=== PATIENT | male | born 1930 ===

== ENCOUNTER 2019-01-02 09:26 | Inpatient (IN) | payer OTHER ==
[2019-01-02 09:29] VITALS: BMI 21.5
--- NOTE | 2019-01-02 09:36 | C.PDOC ---
History Of Present Illness Patient BIBA from home for evaluation of AMS. As per EMS, patient's daughter was speaking to him on the phone and patient seemed confused and not himself, so 911 was called. Family friend in ED states patient has "not been feeling well" for the past 3 days and has been confused. EMS reports some difficulty following commands and difficulty focusing. Time Seen by Provider: 01/02/19 09:33 Chief Complaint (Nursing): Altered Mental Status History Per: EMS, Other History/Exam Limitations: Clinical Condition Onset Of Symptoms: Cannot Confirm Onset Past Medical History Reviewed: Historical Data, Nursing Documentation, Vital Signs Vital Signs: Last Vital Signs Temp 98.5 F 01/02/19 09:29 Pulse 89 01/02/19 09:29 Resp 14 01/02/19 09:29 BP 112/70 01/02/19 09:29 Pulse Ox - Medical History PMH: Diabetes Other PMH: PPM Surgical History: Pacemaker Family History: States: Other Other Family History: noncontributory - Social History Hx Alcohol Use: No Hx Substance Use: No - Immunization History Hx Tetanus Toxoid Vaccination: No Hx Influenza Vaccination: No Review Of Systems Review Of Systems: ROS cannot be obtained secondary to pt's inabilty to answer questions. Physical Exam - Physical Exam Appears: Non-toxic, No Acute Distress Head: Atraumatic, Normacephalic Eye(s): bilateral: Normal Inspection (NO NYSTAGMUS), PERRL, EOMI Oral Mucosa: Moist Cardiovascular: Rhythm Irregular (irregularly irregular ), No Murmur Respiratory: Normal Breath Sounds, No Rales, No Rhonchi, No Wheezing Gastrointestinal/Abdominal: Normal Exam, Bowel Sounds, Soft, No Tenderness Neurological/Psych: No Oriented x3, Normal Speech, No Normal Cognition, Normal Cranial Nerves, No Cerebellar Signs, Normal Motor, Normal Sensation, Slow To Respond With Command, No Dysarthria, Other (difficulty following commands/focusing, (-) Babinski) ED Course And Treatment - Laboratory Results Result Diagrams: 01/07/19 07:42 01/07/19 07:42 ECG: Interpreted By Me, Viewed By Me (atrial fibrillation 81bpm, normal axis, no acute ST/T wave changes) ECG Interpretation: Abnormal O2 Sat by Pulse Oximetry: 96 (RA) Pulse Ox Interpretation: Normal - CT Scan/US CT HEAD Other Rad Studies (CT/US): Read By Radiologist, Radiology Report Reviewed CT/US Interpretation: Accession No. : [id number]. Patient Name / ID : TOMAS FLORES / [id number]. Exam Date : 01/02/2019 09:37:05 ( Approved ). Study Comment : Sex / Age : M / 88Y. Creator : Segun Daley. Dictator : Trung Taylor MD. Pharmacognosist : Coordinator Of Online Programs : Trung Taylor MD. Approver2 : Report Date : 01/02/2019 09:43:09. My Comment : . Date of service: 01/02/2019. PROCEDURE: CT HEAD WITHOUT CONTRAST. HISTORY: Code Stroke. COMPARISON: None available. TECHNIQUE: Axial computed tomography images were obtained through the head/brain without intravenous contrast. Radiation dose: Total exam DLP = 1219.2 mGy-cm. This CT exam was performed using one or more of the following dose reduction techniques: Automated exposure control, adjustment of the mA and/or kV according to patient size, and/or use of iterative reconstruction technique. FINDINGS: HEMORRHAGE: No intracranial hemorrhage. BRAIN: Motion artifacts degrade the quality this examination particularly at the inferior cerebral levels. There is an area of cytotoxic edema affecting the left parietal occipital distribution with mass effect effacing local sulci compatible with acute or subacute brain infarction. A chronic lacune is identified at the right cerebellar base with prominent right cerebellar fissure favored over additional chronic lacune at the posterior right cerebellum mid level. Additional chronic lacune is seen at the right frontal lobe deep white matter. Expansion of the ventricular sulcal and cisternal spaces appreciated with ventricular volume concordant with sulcal volume compatible with diffuse cerebral atrophy. Trace periventricular white matter lucency indicates chronic microangiopathy. Both of these findings are age- appropriate for this patient. VENTRICLES: Unremarkable. No hydrocephalus. CALVARIUM: Unremarkable. PARANASAL SINUSES: Unremarkable as visualized. No significant inflammatory changes. MASTOID AIR CELLS: Unremarkable as visualized. No inflammatory changes. OTHER FINDINGS: None. IMPRESSION: Findings compatible with acute or subacute infarction at the left parietal occipital distribution with limited local mass effect. No midline shift. Motion artifacts degrade the quality this examination particularly at the inferior portion of the cerebrum. No gross intracranial hemorrhage appreciable. Clinical correlation follow-up CT are advised. Age-appropriate age related neuro degenerative change are identified with chronic lacune at the right cerebellar base and right frontal lobe as discussed above. Findings discussed with Dr. Campbell with written down and read back verification 01/02/2019 9:51 a.m.. CTA HEAD/NECK Other Rad Studies (CT/US): Read By Radiologist, Radiology Report Reviewed CT/US Interpretation: Accession No. : [id number]. Patient Name / ID : TOMAS FLORES / [id number]. Exam Date : 01/02/2019 09:46:15 ( Approved ). Study Com ment : Sex / Age : M / 88Y. Creator : Amanda Angulo. Dictator : Mari Caldwell MD. Pharmacognosist : Coordinator Of Online Programs : Mari Caldwell MD. Approver2 : Report Date : 01/02/2019 10:01:34. My Comment : . Date of service: 01/02/2019. PROCEDURE: CTA of the neck and head with contrast. HISTORY: code stroke confusion, atrial fibrillation. COMPARISON: No prior similar study available for comparison. The patient has CT of the head without contrast on 01/02/2019 at 9:40 a.m. TECHNIQUE: CTA of the neck and head were obtained after IV contrast administration. One hundred mL of Visipaque 320 was injected intravenously. Total exam DLP: 995.24. FINDINGS: The study is markedly limited and essentially is nondiagnostic due to poor contrast bolus and very limited opacification of the intracranial and neck arteries. Dilated thoracic aorta noted. Diffuse atherosclerotic calcification more prominent at the distal portion of the internal carotid arteries. IMPRESSION: Markedly limited and essentially nondiagnostic study. Progress Note: Spoke with patient's stepdaughter Luna, she lives in [place]. She called him this morning and states he was confused and having difficulty speaking. She is unsure of when symptoms started, but thinks they began this morning. Last time she spoke with patient was 3 days ago. Family friend at bedside states patient has "not been feeling well" for the past 3 days, he saw him this morning around 8am, after patient had spoken to Luna on the phone. Friend says states patient "seemed ok" but told him he had to go to hospital. Patient was last seen yesterday night by family friend, opened the door for him to come in, was ambulating normally and seemed at baseline. Symptom onset time unclear. 10:15am - Family friend left ED. No medication list available, stepdaughter Ira did not know meds either. Patient states [facility] [address] called called 00- no answer. Will try again. 10:25AM- Patient's medication list provided by pharmacy. Digoxin, Finasteride, Simvastatin, Hydroxyzine, Meformin, Mexilitine. PMD Dr. Martinez, Cardio Dr. Grier. 10:34am - Spoke with Dr. Martinez, confirms this is her patient but she is currently sick, requests hospitalist admission. 10:40- Discussed patient with Dr. Judd, recommends PO ASA, Plavix, IV NS at 100ml, permissive hypertension. No heparin/lovenox at this time. 11:02- Discussed patient with his retail director Dr. Grier, patient does have atrial fibrillation history. Currently on Digoxin (no longer on Mexiletine) and is supposed to be on Eliquis 2.5mg BID, however he has been on and off the medication due to falls/dizziness. Requests Dr. Cuellar see patient for cardiology consult. - Physician Consult Information Physician Contacted: Phil Carvalho Outcome Of Conversation: Discussed patient with hospitalist, agrees with admission for acute/subacute CVA with Dr. Judd for neurology. Dr. Grier retail director will be called. Critical Care Time - Critical Care Note Total Time (in mins): 40 Documented critical care: time excludes all time spent performing seperately billable procedures. NIHSS Stroke Scale - Date/Time Evaluation Performed Date Performed: 01/02/19 Time Performed: 09:29 When Was NIHSS Performed: Baseline - How Severe is the Stoke Level of Consciousness: 0=Alert LOC to Questions: 1=One correct LOC to commands: 1=Obeys one correctly Best Gaze: 0=Normal Visual: 0=No visual loss Facial: 0=Normal Motor Arm - Left: 0=No drift Motor Arm - Right: 0=No drift Motor Leg - Left: 0=No drift Motor Leg - Right: 0=No drift Limb Ataxia: 0=Absent Sensory: 0=Normal Best Language: 1=Mild to moderate aphasia Dysarthia: 0=Normal articulation Extinction & Inattention (Neglect): 0=Normal, no object Score: 3 rTPA Inclusion/Exclusion - Refusal of Treatment Patient Refused Treatment: No - Inclusion Criteria for Altepase Patient is 18 years or Older: Yes Clinical DX Ischemic Stroke Cause Neurological Deficit: Yes Time of Onset Established Less Than 270 Mins Before TX Begin: No Risk/Benefit Discussed With Patient/Family Member Present: No Disposition - Disposition Disposition: HOSPITALIZED Disposition Time: 10:50 Condition: STABLE - Clinical Impression Clinical Impression: CVA (cerebral vascular accident) Decision To Admit - Pt Status Changed To: Hospital Disposition Of: Inpatient - Admit Certification Admit to Inpatient:: After my assessment, the patient will require hospitaliza tion for at least two midnights. This is because of the severity of symptoms shown, intensity of services needed, and/or the medical risk in this patient being treated as an outpatient. - InPatient: Physician Admission Certification:: see notes - . Bed Request Type: Telemetry Admitting Physician: Phil Carvalho Patient Diagnosis: CVA (cerebral vascular accident)
[2019-01-02] MEDS ORDERED: Iodixanol 320 MG/ML 100 ML BOTTLE IV ONE (09:42)
[2019-01-02 09:43] LABS: BASO # 0.1 K/uL (0.0-0.2); BASO % 1.2 % (0.0-2.0); EOS # 0.2 K/uL (0.0-0.7); EOS % 1.7 % (0.0-4.0); HEMOGLOBIN 15.9 g/dL (12.0-18.0); LYMPH % 33.2 % (20.0-40.0); MEAN CELL VOLUME 91.3 fL (80.0-94.0); MEAN CORPUSCULAR HEMOGLOBIN 29.9 pg (27.0-31.0); MEAN CORPUSCULAR HGB CONC 32.8 g/dL (33.0-37.0); MEAN PLATELET VOLUME 10.8 fL (7.2-11.7); MONO # 0.9 K/uL (0.0-0.8); MONO % 9.8 % (0.0-10.0); NEUT # 4.9 K/uL (1.8-7.0); NEUT % 54.1 % (50.0-75.0); NRBC % 0.1 % (0.0-2.0); RBC 5.29 Mil/uL (4.40-5.90); RED CELL DISTRIBUTION WIDTH 13.5 % (11.5-14.5)
[2019-01-02 09:52] LABS: INR 1.2; PROTHROMBIN TIME 12.7 SECONDS (9.7-12.2)
[2019-01-02 09:57] LABS: ALB/GLOB RATIO 1.3 (1.0-2.1); ALT/SGPT 16 U/L (21-72); AST/SGOT 24 U/L (17-59); BLOOD UREA NITROGEN 18 mg/dL (9-20); CALCIUM 9.5 mg/dl (8.6-10.4); GFR NON-AFRICAN AMERICAN > 60; HDL CHOLESTEROL 51 mg/dL (30-70)
--- NOTE | 2019-01-02 10:07 | CT ---
Date of service: 01/02/2019 PROCEDURE: CT HEAD WITHOUT CONTRAST. HISTORY: Code Stroke COMPARISON: None available. TECHNIQUE: Axial computed tomography images were obtained through the head/brain without intravenous contrast. Radiation dose: Total exam DLP = 1219.2 mGy-cm. This CT exam was performed using one or more of the following dose reduction techniques: Automated exposure control, adjustment of the mA and/or kV according to patient size, and/or use of iterative reconstruction technique. FINDINGS: HEMORRHAGE: No intracranial hemorrhage. BRAIN: Motion artifacts degrade the quality this examination particularly at the inferior cerebral levels. There is an area of cytotoxic edema affecting the left parietal occipital distribution with mass effect effacing local sulci compatible with acute or subacute brain infarction. A chronic lacune is identified at the right cerebellar base with prominent right cerebellar fissure favored over additional chronic lacune at the posterior right cerebellum mid level. Additional chronic lacune is seen at the right frontal lobe deep white matter. Expansion of the ventricular sulcal and cisternal spaces appreciated with ventricular volume concordant with sulcal volume compatible with diffuse cerebral atrophy. Trace periventricular white matter lucency indicates chronic microangiopathy. Both of these findings are age-appropriate for this patient. VENTRICLES: Unremarkable. No hydrocephalus. CALVARIUM: Unremarkable. PARANASAL SINUSES: Unremarkable as visualized. No significant inflammatory changes. MASTOID AIR CELLS: Unremarkable as visualized. No inflammatory changes. OTHER FINDINGS: None. IMPRESSION: Findings compatible with acute or subacute infarction at the left parietal occipital distribution with limited local mass effect. No midline shift. Motion artifacts degrade the quality this examination particularly at the inferior portion of the cerebrum. No gross intracranial hemorrhage appreciable. Clinical correlation follow-up CT are advised. Age-appropriate age related neuro degenerative change are identified with chronic lacune at the right cerebellar base and right frontal lobe as discussed above. Findings discussed with Dr. Campbell with written down and read back verification 01/02/2019 9:51 a.m..
[2019-01-02 10:09] LABS: LDL CHOLESTEROL 116 mg/dL (0-129)
--- NOTE | 2019-01-02 10:31 | CT ---
Date of service: 01/02/2019 PROCEDURE: CTA of the neck and head with contrast HISTORY: code stroke confusion, atrial fibrillation COMPARISON: No prior similar study available for comparison. The patient has CT of the head without contrast on 01/02/2019 at 9:40 a.m. TECHNIQUE: CTA of the neck and head were obtained after IV contrast administration. One hundred mL of Visipaque 320 was injected intravenously. Total exam DLP: 995.24 FINDINGS: The study is markedly limited and essentially is nondiagnostic due to poor contrast bolus and very limited opacification of the intracranial and neck arteries. Dilated thoracic aorta noted. Diffuse atherosclerotic calcification more prominent at the distal portion of the internal carotid arteries. IMPRESSION: Markedly limited and essentially nondiagnostic study.
[2019-01-02] MEDS ORDERED: Sodium Chloride 0.9% 1,000 ML IV ONE (10:44)
[2019-01-02 11:28] LABS: URINE BILIRUBIN NEGATIVE (NEGATIVE); URINE BLOOD NEGATIVE (NEGATIVE); URINE CLARITY Clear (Clear); URINE COLOR Yellow (YELLOW); URINE GLUCOSE (UA) 1+ mg/dL (Normal); URINE LEUKOCYTE ESTERASE NEG Leu/uL (Negative); URINE PROTEIN NEGATIVE (NEGATIVE); URINE UROBILINOGEN NORMAL mg/dL (0.2-1.0)
--- NOTE | 2019-01-02 11:42 | CP.PCM.HP ---
History of Present Illness - History of Present Illness History of Present Illness: Trae Brewster PGY1 H&P for Dr. Carvalho Patient is a 88yo Male with PMH DM2 and A.fib with pacemaker, brought in by ambulance to ED for altered mental status. Patient complains of throat pain and headache at this time. Most history is obtained from friend at bedside and daughter in law Luna over the phone. As per Luna, patient complained of headache and generally not feeling well for the past 3 days. She requested the friend to go visit him last night. At that time, patient appeared "normal" to friend, who did not notice any difficulty talking, walking, or using limbs. He says patient at baseline has memory issues, sometimes confusing stories or repeating things. This morning, friend returned to visit patient around 8am, at which time he was slightly confused and with some unintelligible speech, complaining of headache and throat pain. Patient was still able to walk at this time, and friend did not notice facial droop. Patient and friend both deny any falls or trauma. Patient currently denies any trouble swallowing, blurry vision, numbness, tingling, or dizziness. SxH: pacemaker, unknown year FamH: denies SocH: denies tobacco, alcohol, or recreational drug use Allergies: not attainable at this time Meds: simivistatin 20mg PO daily, Metformin 500mg PO daily, Atarax 25mg PO daily, finasteride 5mg PO daily, Digoxin 125mcg PO daily PMD: Michelle ROS: positive: headache, throat pain. negative: chest pain, shortness of breath, abdominal pain, nausea, vomiting, diarrhea, dysuria, urinary incontinence, numbness, tingling, blurry vision, rashes. Present on Admission - Present on Admission Any Indicators Present on Admission: No Review of Systems - Review of Systems Review of Systems: as per HPI Past Patient History - Infectious Disease Hx of Infectious Diseases: None - Past Social History Smoking Status: Unknown If Ever Smoked - CARDIAC Hx Pacemaker: Yes - PSYCHIATRIC Hx Substance Use: No - SURGICAL HISTORY Hx Surgeries: (unknown) - ANESTHESIA Hx Anesthesia: No Meds Allergies/Adverse Reactions: Allergies Allergy/AdvReac Type Severity Reaction Status Date / Time Unobtainable Allergy Verified 01/02/19 09:28 Physical Exam - Constitutional Appears: Well, No Acute Distress - Head Exam Head Exam: ATRAUMATIC - Eye Exam Eye Exam: EOMI, Normal appearance, PERRL Pupil Exam: NORMAL ACCOMODATION - ENT Exam ENT Exam: Mucous Membranes Moist - Neck Exam Neck exam: Negative for: Lymphadenopathy, Tenderness, Thyromegaly - Respiratory Exam Respiratory Exam: Clear to Auscultation Bilateral, NORMAL BREATHING PATTERN. absent: Rales, Rhonchi, Wheezes - Cardiovascular Exam Cardiovascular Exam: Irregular Rhythm, +S1, +S2. absent: Gallop, JVD, Rubs - GI/Abdominal Exam GI & Abdominal Exam: Normal Bowel Sounds, Soft. absent: Distended, Firm, Tenderness - Extremities Exam Extremities exam: Positive for: pedal pulses present. Negative for: calf tenderness, pedal edema, tenderness - Neurological Exam Neurological exam: CN II-XII Intact, Reflexes Normal Additional comments: AAOx1, to person. muscle strength 4/5 in b/l upper and lower extremities no sensory deficits unable to follow commands to assess dysdiadochokinesia - Psychiatric Exam Psychiatric exam: Normal Affect, Normal Mood - Skin Skin Exam: Dry, Normal Color, Warm Results - Vital Signs Recent Vital Signs: Last Vital Signs Temp 98.5 F 01/02/19 09:29 Pulse 86 01/02/19 10:17 Resp 16 01/02/19 10:17 BP 116/70 01/02/19 10:17 Pulse Ox 96 01/02/19 10:17 - Labs Result Diagrams: 01/02/19 09:37 01/02/19 09:37 Labs: Laboratory Results - last 24 hr 01/02/19 01/02/19 01/02/19 09:29 09:37 09:37 WBC 9.0 RBC 5.29 Hgb 15.9 Hct 48.3 MCV 91.3 MCH 29.9 MCHC 32.8 L RDW 13.5 Plt Count 368 MPV 10.8 Neut % (Auto) 54.1 Lymph % (Auto) 33.2 Payne % (Auto) 9.8 Eos % (Auto) 1.7 Baso % (Auto) 1.2 Neut # (Auto) 4.9 Lymph # (Auto) 3.0 Payne # (Auto) 0.9 H Eos # (Auto) 0.2 Baso # (Auto) 0.1 PT 12.7 H INR 1.2 APTT 28 Sodium Potassium Chloride Carbon Dioxide Anion Gap BUN Creatinine Est GFR ( Amer) Est GFR (Non-Af Amer) POC Glucose (mg/dL) 229 H Random Glucose Hemoglobin A1c Calcium Total Bilirubin AST ALT Alkaline Phosphatase Troponin I Total Protein Albumin Globulin Albumin/Globulin Ratio Triglycerides Cholesterol LDL Cholesterol Direct HDL Cholesterol Urine Color Urine Clarity Urine pH Ur Specific [place] Urine Protein Urine Glucose (UA) Urine Ketones Urine Blood Urine Nitrate Urine Bilirubin Urine Urobilinogen Ur Leukocyte Esterase Urine WBC (Auto) Urine RBC (Auto) Digoxin Blood Type Antibody Screen 01/02/19 01/02/19 01/02/19 09:37 09:37 09:40 WBC RBC Hgb Hct MCV MCH MCHC RDW Plt Count MPV Neut % (Auto) Lymph % (Auto) Payne % (Auto) Eos % (Auto) Baso % (Auto) Neut # (Auto) Lymph # (Auto) Payne # (Auto) Eos # (Auto) Baso # (Auto) PT INR APTT Sodium 133 Potassium 4.2 Chloride 97 L Carbon Dioxide 28 Anion Gap 12 BUN 18 Creatinine 1.1 Est GFR ( Amer) > 60 Est GFR (Non-Af Amer) > 60 POC Glucose (mg/dL) Random Glucose 207 H Hemoglobin A1c 9.0 H Calcium 9.5 Total Bilirubin 1.0 AST 24 ALT 16 L Alkaline Phosphatase 49 Troponin I < 0.0120 Total Protein 7.1 Albumin 4.0 Globulin 3.1 Albumin/Globulin Ratio 1.3 Triglycerides 185 H Cholesterol 169 LDL Cholesterol Direct 116 HDL Cholesterol 51 Urine Color Urine Clarity Urine pH Ur Specific [place] Urine Protein Urine Glucose (UA) Urine Ketones Urine Blood Urine Nitrate Urine Bilirubin Urine Urobilinogen Ur Leukocyte Esterase Urine WBC (Auto) Urine RBC (Auto) Digoxin Blood Type O POSITIVE Antibody Screen Negative 01/02/19 01/02/19 10:37 11:10 WBC RBC Hgb Hct MCV MCH MCHC RDW Plt Count MPV Neut % (Auto) Lymph % (Auto) Payne % (Auto) Eos % (Auto) Baso % (Auto) Neut # (Auto) Lymph # (Auto) Payne # (Auto) Eos # (Auto) Baso # (Auto) PT INR APTT Sodium Potassium Chloride Carbon Dioxide Anion Gap BUN Creatinine Est GFR ( Amer) Est GFR (Non-Af Amer) POC Glucose (mg/dL) Random Glucose Hemoglobin A1c Calcium Total Bilirubin AST ALT Alkaline Phosphatase Troponin I Total Protein Albumin Globulin Albumin/Globulin Ratio Triglycerides Cholesterol LDL Cholesterol Direct HDL Cholesterol Urine Color Yellow Urine Clarity Clear Urine pH 6.0 Ur Specific [place] 1.010 Urine Protein Negative Urine Glucose (UA) 1+ H Urine Ketones Trace Urine Blood Negative Urine Nitrate Negative Urine Bilirubin Negative Urine Urobilinogen Normal Ur Leukocyte Esterase Neg Urine WBC (Auto) < 1 Urine RBC (Auto) 2 Digoxin < 0.4 L Blood Type Antibody Screen Assessment & Plan - Assessment and Plan (Free Text) Assessment: 88 year old male with PMH A.fib with pacemaker, DM2 presenting with altered mental status and called code stroke in ED. 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 Patient admitted for further evaluation and treatment of CVA. Plan: CVA - pt with altered mental status - CT head w/o contrast: acute vs. subacute infacrtion at L parietal occipital distribution with limited local mass effect. no midline shift, no hemorrhage. age-appropriate degenerative changes. - CTA head/neck: non-diagnostic - given ASA 325mg in ED, as per Neuro - given Plavix 300mg in ED, as per Neuro - not tpa candidate at this time due to uncertain time on onset of symptoms - NIHSS score of 3 - passed bedside swallow test - lipid panel: TG elevated at 185 - f/u UCx to r/o infectious cause of altered mental status - I/Os - tele monitoring - Crestor 20mg PO HS - ASA 325mg PO daily - Plavix 75mg PO daily - Neuro consulted, Dr. Judd - recs appreciated - PT/OT - Speech/Language Eval A.fib with pacemaker - EKG: A.fib at 81 bpm - troponin negative - digoxin level 0.4 - continue digoxin 125mcg PO daily - f/u ECHO - Cardio consulted, Dr. Grier - f/u recs DM2 - low dose sliding scale - home metformin held due to IV contrast, resume in 24 hrs - hypoglycemic protocol - accuchecks ACHS PPX: GI: Pepcid 20mg PO BID DVT: SCDs CCD Patient seen and case reviewed with Dr. Carvalho
--- NOTE | 2019-01-02 11:49 | RAD ---
Date of service: 01/02/2019 HISTORY: Code Stroke COMPARISON: No prior. FINDINGS: LUNGS: No active pulmonary disease. PLEURA: No significant pleural effusion identified, no pneumothorax apparent. CARDIOVASCULAR: No atherosclerotic calcification present No radiographic findings to suggest acute or significant cardiovascular disease. Position/ configuration of pacemaker device: Satisfactory. OSSEOUS STRUCTURES: No significant abnormalities. VISUALIZED UPPER ABDOMEN: Normal. OTHER FINDINGS: None. IMPRESSION: No active disease.
[2019-01-02] MEDS ORDERED: Glucagon Recombinant 1 mg Inj IM PRN (13:36)
[2019-01-02] MEDS ORDERED: Dextrose 50% SYRINGE Inj (50 ml) IV PRN (13:36)
[2019-01-02] MEDS ORDERED: Digoxin 125 mcg (0.125 mg) Tab PO SCH (13:45)
--- NOTE | 2019-01-02 16:39 | CP.PCM.CON ---
History of Present Illness - History of Present Illness History of Present Illness: Neurology Consultation Note: Consult requested by Dr. Carvalho The patient is an 88-year-old man with a past medical history DM2 and A.fib with pacemaker, brought in by ambulance to ED for altered mental status. The last time he was seen at his baseline was [address] scan of the head showed a left parietal/occipital subacute ischemic stroke. CTA of the head/neck was not very diagnostic. Review of Systems - Review of Systems Systems not reviewed;Unavailable: Altered Mental Status Past Patient History - Infectious Disease Hx of Infectious Diseases: None - Past Social History Smoking Status: Unknown If Ever Smoked - CARDIAC Hx Pacemaker: Yes - PSYCHIATRIC Hx Substance Use: No - SURGICAL HISTORY Hx Surgeries: (unknown) - ANESTHESIA Hx Anesthesia: No Meds Allergies/Adverse Reactions: Allergies Allergy/AdvReac Type Severity Reaction Status Date / Time Unobtainable Allergy Verified 01/02/19 09:28 - Medications Medications: Current Medications Aspirin (Aspirin) 325 mg PO DAILY [facility] Clopidogrel Bisulfate (Plavix) 75 mg PO DAILY [facility] Dextrose (Dextrose 50% Inj) 0 ml IV STAT PRN; Protocol PRN Reason: Hypoglycemia Protocol Dextrose (Glutose 15) 0 gm PO ONCE PRN; Protocol PRN Reason: Hypoglycemia Protocol Digoxin (Digoxin) 0.125 mg PO DAILY [facility] Famotidine (Pepcid) 20 mg PO DAILY [facility] Finasteride (Proscar) 5 mg PO DAILY [facility] Glucagon (Glucagen Diagnostic Kit) 0 mg IM STAT PRN; Protocol PRN Reason: Hypoglycemia Protocol Hydroxyzine HCl (Atarax) 25 mg PO DAILY PRN PRN Reason: Allergy symptoms Sodium Chloride (Sodium Chloride 0.9%) 1,000 mls @ 100 mls/hr IV .Q10H ONE Stop: 01/02/19 20:43 Last Admin: 01/02/19 11:18 Dose: 100 mls/hr Dextrose (Dextrose 5% In Water 1000 Ml) 1,000 mls @ 0 mls/hr IV .Q0M PRN; Protocol PRN Reason: Hypoglycemia Protocol Insulin Human Regular (Novolin R) 0 unit SC ACHS [facility]; Protocol Rosuvastatin Calcium (Crestor) 20 mg PO HS [facility] Physical Exam - Constitutional Appears: Well - Head Exam Head Exam: ATRAUMATIC, NORMAL INSPECTION, NORMOCEPHALIC - Eye Exam Eye Exam: EOMI, Normal appearance, PERRL Pupil Exam: NORMAL ACCOMODATION, PERRL - ENT Exam ENT Exam: Mucous Membranes Moist, Normal Exam - Neck Exam Neck exam: Positive for: Normal Inspection - Respiratory Exam Respiratory Exam: Clear to Auscultation Bilateral, NORMAL BREATHING PATTERN - Cardiovascular Exam Cardiovascular Exam: Irregular Rhythm, +S1, +S2 - GI/Abdominal Exam GI & Abdominal Exam: Normal Bowel Sounds, Soft. absent: Tenderness - Extremities Exam Extremities exam: Positive for: normal inspection - Back Exam Back exam: NORMAL INSPECTION - Neurological Exam Neurological exam: Altered, CN II-XII Intact, Normal Gait, Oriented x3, Reflexes Normal Additional comments: Partial receptive and productive aphasia. - Psychiatric Exam Psychiatric exam: Normal Affect, Normal Mood - Skin Skin Exam: Dry, Intact, Normal Color, Warm Results - Vital Signs Recent Vital Signs: Last Vital Signs Temp 98.1 F 01/02/19 12:10 Pulse 82 01/02/19 12:10 Resp 18 01/02/19 12:10 BP 121/73 01/02/19 12:10 Pulse Ox 98 01/02/19 12:10 - Labs Result Diagrams: 01/02/19 09:37 01/02/19 09:37 Labs: Laboratory Results - last 24 hr 01/02/19 01/02/19 01/02/19 09:29 09:37 09:37 WBC 9.0 RBC 5.29 Hgb 15.9 Hct 48.3 MCV 91.3 MCH 29.9 MCHC 32.8 L RDW 13.5 Plt Count 368 MPV 10.8 Neut % (Auto) 54.1 Lymph % (Auto) 33.2 Gilliam % (Auto) 9.8 Eos % (Auto) 1.7 Baso % (Auto) 1.2 Neut # (Auto) 4.9 Lymph # (Auto) 3.0 Gilliam # (Auto) 0.9 H Eos # (Auto) 0.2 Baso # (Auto) 0.1 PT 12.7 H INR 1.2 APTT 28 Sodium Potassium Chloride Carbon Dioxide Anion Gap BUN Creatinine Est GFR ( Amer) Est GFR (Non-Af Amer) POC Glucose (mg/dL) 229 H Random Glucose Hemoglobin A1c Calcium Total Bilirubin AST ALT Alkaline Phosphatase Troponin I Total Protein Albumin Globulin Albumin/Globulin Ratio Triglycerides Cholesterol LDL Cholesterol Direct HDL Cholesterol Urine Color Urine Clarity Urine pH Ur Specific [place] Urine Protein Urine Glucose (UA) Urine Ketones Urine Blood Urine Nitrate Urine Bilirubin Urine Urobilinogen Ur Leukocyte Esterase Urine WBC (Auto) Urine RBC (Auto) Digoxin Blood Type Antibody Screen 01/02/19 01/02/19 01/02/19 09:37 09:37 09:40 WBC RBC Hgb Hct MCV MCH MCHC RDW Plt Count MPV Neut % (Auto) Lymph % (Auto) Gilliam % (Auto) Eos % (Auto) Baso % (Auto) Neut # (Auto) Lymph # (Auto) Gilliam # (Auto) Eos # (Auto) Baso # (Auto) PT INR APTT Sodium 133 Potassium 4.2 Chloride 97 L Carbon Dioxide 28 Anion Gap 12 BUN 18 Creatinine 1.1 Est GFR ( Amer) > 60 Est GFR (Non-Af Amer) > 60 POC Glucose (mg/dL) Random Glucose 207 H Hemoglobin A1c 9.0 H Calcium 9.5 Total Bilirubin 1.0 AST 24 ALT 16 L Alkaline Phosphatase 49 Troponin I < 0.0120 Total Protein 7.1 Albumin 4.0 Globulin 3.1 Albumin/Globulin Ratio 1.3 Triglycerides 185 H Cholesterol 169 LDL Cholesterol Direct 116 HDL Cholesterol 51 Urine Color Urine Clarity Urine pH Ur Specific [place] Urine Protein Urine Glucose (UA) Urine Ketones Urine Blood Urine Nitrate Urine Bilirubin Urine Urobilinogen Ur Leukocyte Esterase Urine WBC (Auto) Urine RBC (Auto) Digoxin Blood Type O POSITIVE Antibody Screen Negative 01/02/19 01/02/19 10:37 11:10 WBC RBC Hgb Hct MCV MCH MCHC RDW Plt Count MPV Neut % (Auto) Lymph % (Auto) Gilliam % (Auto) Eos % (Auto) Baso % (Auto) Neut # (Auto) Lymph # (Auto) Gilliam # (Auto) Eos # (Auto) Baso # (Auto) PT INR APTT Sodium Potassium Chloride Carbon Dioxide Anion Gap BUN Creatinine Est GFR ( Amer) Est GFR (Non-Af Amer) POC Glucose (mg/dL) Random Glucose Hemoglobin A1c Calcium Total Bilirubin AST ALT Alkaline Phosphatase Troponin I Total Protein Albumin Globulin Albumin/Globulin Ratio Triglycerides Cholesterol LDL Cholesterol Direct HDL Cholesterol Urine Color Yellow Urine Clarity Clear Urine pH 6.0 Ur Specific [place] 1.010 Urine Protein Negative Urine Glucose (UA) 1+ H Urine Ketones Trace Urine Blood Negative Urine Nitrate Negative Urine Bilirubin Negative Urine Urobilinogen Normal Ur Leukocyte Esterase Neg Urine WBC (Auto) < 1 Urine RBC (Auto) 2 Digoxin < 0.4 L Blood Type Antibody Screen Assessment & Plan (1) Ischemic stroke Assessment and Plan: Appears to be cardio-embolic in appearance. Will consider starting anticoagulation after repeat CT head tomorrow to rule out any hemorrhagic conversion. I recommend the followin. Telemetry 2. MRI brain without contrast, if possible (pacemaker) 3. Echocardiogram 4. Carotid doppler ultrasound 5. Check HbA1c, lipid panel, B12, folate, TSH, vitamin D level 6. Fluids with NS at 100 mL/hr 7. May control BP since the patient was last normal 3 days ago 8. PT/OT eval and treatment 9. Case management consult Thank you for this consultation. Status: Acute
[2019-01-02] MEDS: (Novolin R) Insulin Human Regular 100 units/ml vial SC SCH ×2 (17:30→21:41)
--- NOTE | 2019-01-02 23:04 | CARD ---
APPROVED REPORT Date of service: 01/02/2019 EXAM: Two-dimensional and M-mode echocardiogram with Doppler and color Doppler. Other Information Quality : TDSRhythm : Atrial Fibrillation Surgery/Intervention Pacemaker: RISK FACTORS Diabetes 2D DIMENSIONS IVSd1.0 (0.7-1.1cm)LVDd4.4 (3.9-5.9cm) LVOT Diameter2.3 (1.8-2.4cm)PWd0.9 (0.7-1.1cm) LA Onvtxg49 (18-58mL)LVDs3.5 (2.5-4.0cm) FS (%) 19.8 %LVEF (%)60.0 (>50%) LVEF (Andino's)67.30 %IVC0.00 cm M-Mode DIMENSIONS Left Atrium (MM)3.14 (2.5-4.0cm)Aortic Root3.45 (2.2-3.7cm) Aortic Cusp Exc.1.13 (1.5-2.0cm) Aortic Valve AoV Peak Qylzllei802.8cm/sAoV VTI37.7cmAO Peak GR.18mmHg LVOT Peak Jzfexsjs82.6cm/sLVOT VTI14.95cmAO Mean GR.9mmHg IGOR (VMAX)1.51qb3NSR (VTI)1.60cm2 Mitral Valve MV E Rvkgnzvz247.9cm/sMV A Qtgxwers99.6cm/sE/A ratio3.9 TDI Lateral E' Peak V7.13cm/sMedial E' Peak V6.09cm/sE/Lateral E'14.6 E/Medial E'17.1 Tricuspid Valve TR Peak Rebgvjco440ai/sTR Peak Gr.75bgBgILVI20rfBa LEFT VENTRICLE The left ventricle is normal size. There is mild concentric left ventricular hypertrophy. The left ventricular function is normal. The left ventricular ejection fraction is within the normal range. There is normal LV segmental wall motion. The left ventricular diastolic function is normal. RIGHT VENTRICLE The right ventricle is normal size. ATRIA The left atrium size is normal. The right atrium size is normal. AORTIC VALVE The aortic valve is moderately sclerotic. There is moderate valvular aortic stenosis. MITRAL VALVE Mitral regurgitation is trace to mild. TRICUSPID VALVE There is trace to mild tricuspid regurgitation. <Conclusion> Technically limited and difficult study. Normal LV systolic function. Normal chamber size. Moderate . Mild MR. Trace to mild TR.
[2019-01-03 07:17] LABS: BASO # 0.1 K/uL (0.0-0.2); BASO % 1.2 % (0.0-2.0); EOS # 0.2 K/uL (0.0-0.7); EOS % 2.7 % (0.0-4.0); HEMOGLOBIN 14.2 g/dL (12.0-18.0); LYMPH # 3.9 K/uL (1.0-4.3); MEAN CELL VOLUME 90.7 fL (80.0-94.0); MEAN CORPUSCULAR HEMOGLOBIN 30.3 pg (27.0-31.0); MEAN CORPUSCULAR HGB CONC 33.4 g/dL (33.0-37.0); MEAN PLATELET VOLUME 10.6 fL (7.2-11.7); MONO # 0.9 K/uL (0.0-0.8); MONO % 9.8 % (0.0-10.0); NEUT # 3.7 K/uL (1.8-7.0); NEUT % 42.3 % (50.0-75.0); NRBC % 0.1 % (0.0-2.0); RBC 4.68 Mil/uL (4.40-5.90); RED CELL DISTRIBUTION WIDTH 13.2 % (11.5-14.5); WHITE BLOOD COUNT 8.9 K/uL (4.8-10.8)
[2019-01-03] MEDS: (Novolin R) Insulin Human Regular 100 units/ml vial SC SCH ×4 (07:30→21:33)
[2019-01-03 07:41] LABS: ALB/GLOB RATIO 1.4 (1.0-2.1); ALBUMIN 3.7 g/dL (3.5-5.0); ALT/SGPT 18 U/L (21-72); AST/SGOT 29 U/L (17-59); BLOOD UREA NITROGEN 22 mg/dL (9-20); CALCIUM 9.3 mg/dl (8.6-10.4); GFR NON-AFRICAN AMERICAN > 60
--- NOTE | 2019-01-03 11:35 | CP.PCM.PN ---
<Shannan Pires - Last Filed: 01/03/19 13:38> Subjective - Date & Time of Evaluation Date of Evaluation: 01/03/19 Time of Evaluation: 07:00 - Subjective Subjective: PGY2- Neuro Progress Note Patient seen and examined at bedside and in no acute distress. Patient is able to tell me his name, that he is in a hospital and that it is December. Patient has no complaints. Patient denies headache, dizziness, visual changes, chest pain, shortness of breath, abdominal pain, nausea, vomiting, constipation, or diarrhea. Objective - Vital Signs/Intake and Output Vital Signs (last 24 hours): Temp Pulse Resp BP Pulse Ox 97.9 F 63 20 108/64 96 01/03/19 07:15 01/03/19 07:15 01/03/19 07:15 01/03/19 07:15 01/03/19 07:15 Intake and Output: 01/03/19 01/03/19 06:59 18:59 Intake Total 300 Balance 300 - Medications Medications: Current Medications Aspirin (Aspirin) 325 mg PO DAILY [facility] Last Admin: 01/03/19 10:23 Dose: 325 mg Clopidogrel Bisulfate (Plavix) 75 mg PO DAILY [facility] Last Admin: 01/03/19 10:22 Dose: 75 mg Dextrose (Dextrose 50% Inj) 0 ml IV STAT PRN; Protocol PRN Reason: Hypoglycemia Protocol Dextrose (Glutose 15) 0 gm PO ONCE PRN; Protocol PRN Reason: Hypoglycemia Protocol Digoxin (Digoxin) 0.125 mg PO 1800 [facility] Famotidine (Pepcid) 20 mg PO DAILY [facility] Last Admin: 01/03/19 10:22 Dose: 20 mg Finasteride (Proscar) 5 mg PO DAILY [facility] Last Admin: 01/03/19 10:22 Dose: 5 mg Glucagon (Glucagen Diagnostic Kit) 0 mg IM STAT PRN; Protocol PRN Reason: Hypoglycemia Protocol Hydroxyzine HCl (Atarax) 25 mg PO DAILY PRN PRN Reason: Allergy symptoms Dextrose (Dextrose 5% In Water 1000 Ml) 1,000 mls @ 0 mls/hr IV .Q0M PRN; Protocol PRN Reason: Hypoglycemia Protocol Insulin Human Regular (Novolin R) 0 unit SC [facility]; Protocol Last Admin: 01/03/19 07:30 Dose: Not Given Rosuvastatin Calcium (Crestor) 20 mg PO [facility] Last Admin: 01/02/19 21:40 Dose: 20 mg - Labs Labs: 01/03/19 07:05 01/03/19 07:05 PT 12.7 SECONDS (9.7-12.2) H 01/02/19 09:37 INR 1.2 01/02/19 09:37 APTT 28 SECONDS (21-34) 01/02/19 09:37 - Constitutional Appears: Non-toxic, No Acute Distress - Head Exam Head Exam: ATRAUMATIC, NORMAL INSPECTION, NORMOCEPHALIC - Eye Exam Eye Exam: EOMI, Normal appearance - ENT Exam ENT Exam: Mucous Membranes Moist - Respiratory Exam Respiratory Exam: Clear to Ausculation Bilateral, NORMAL BREATHING PATTERN - Cardiovascular Exam Cardiovascular Exam: Irregular Rhythm, +S1, +S2 - GI/Abdominal Exam GI & Abdominal Exam: Soft, Normal Bowel Sounds - Extremities Exam Extremities Exam: Normal Inspection - Back Exam Back Exam: NORMAL INSPECTION - Neurological Exam Neurological Exam: Alert, Awake, Oriented x3 Neuro motor strength exam: Left Upper Extremity: 5, Right Upper Extremity: 5, Left Lower Extremity: 5, Right Lower Extremity: 5 Additional comments: Partial receptive and productive aphasia. - Psychiatric Exam Psychiatric exam: Normal Affect, Normal Mood - Skin Skin Exam: Intact, Normal Color, Warm Assessment and Plan - Assessment and Plan (Free Text) Assessment: (1) Ischemic stroke Assessment and Plan: Imaging: Head CT (01/02/19): findings compatible with acute or subacute infarction at the left parietal occipital distribution with limited local mass effect. No midline shift. No gross intracranial hemorrhage appreciable. age appropriate related neuro degenerative change are identified with chronic lacune at the right cerebellar base and right frontal lobe. Head and Neck CTA (01/02/19): markedly limited and essentially nondiagnostic study Head CT (01/03/19): there is an acute or subacute infarct in the left occipital lobe measuring 24 x 32mm. This is unchanged in appearance. Chronic microvascular changes are seen as well as moderate atrophy Echocardiogram (01/02/19): technically limited and difficult study. Normal LV systolic function. Normal chamber size. Moderate . Mild MR. Trace to mild TR. MRI brain without contrast, if possible (pacemaker) f/u Carotid doppler ultrasound hold anticoagulation, may start Eliquis tomorrow after repeat head CT to r/o any hemorrhagic conversion HbA1c: 9.0 lipid panel: Triglycerides: 185, Cholesterol 169, LDL 116, HDL 51 B12: 374, folate: 13.2 TSH: 4.13 vitamin D: 36.6 PT/OT eval and treatment Case management consult Discussed with Dr. Binta Pires, PGY2 <Rafat Judd - Last Filed: 01/07/19 15:53> Objective - Vital Signs/Intake and Output Vital Signs (last 24 hours): Temp Pulse Resp BP Pulse Ox 98.2 F 113 H 20 119/76 96 01/07/19 08:02 01/07/19 08:27 01/07/19 08:02 01/07/19 08:02 01/07/19 08:02 Intake and Output: 01/07/19 01/07/19 06:59 18:59 Intake Total 500 Output Total 300 Balance 200 - Labs Labs: 01/07/19 07:42 01/07/19 07:42 PT 12.7 SECONDS (9.7-12.2) H 01/02/19 09:37 INR 1.2 01/02/19 09:37 APTT 28 SECONDS (21-34) 01/02/19 09:37 Assessment and Plan (1) Ischemic stroke Status: Acute Attending/Attestation - Attestation I have personally seen and examined this patient.: Yes I have fully participated in the care of the patient.: Yes I have reviewed all pertinent clinical information, including history, physical exam and plan: Yes Notes (Text): I agree with the assessment and plan. Will continue holding Eliquis for now. If repeat CT head is stable, we can start it for secondary stroke prevention.
--- NOTE | 2019-01-03 13:00 | CT ---
Date of service: 01/03/2019 PROCEDURE: CT HEAD WITHOUT CONTRAST. HISTORY: r/o hemmorhagic conversion COMPARISON: 01/02/2019 CT TECHNIQUE: Axial computed tomography images were obtained through the head/brain without intravenous contrast. Radiation dose: Total exam DLP = 948.61 mGy-cm. This CT exam was performed using one or more of the following dose reduction techniques: Automated exposure control, adjustment of the mA and/or kV according to patient size, and/or use of iterative reconstruction technique. FINDINGS: HEMORRHAGE: No intracranial hemorrhage. BRAIN: There is an acute or subacute infarct in the left occipital lobe measuring 24 x 32 mm. This is unchanged in appearance. Chronic microvascular changes are seen as well as moderate atrophy VENTRICLES: Unremarkable. No hydrocephalus. CALVARIUM: Unremarkable. PARANASAL SINUSES: Unremarkable as visualized. No significant inflammatory changes. MASTOID AIR CELLS: Unremarkable as visualized. No inflammatory changes. OTHER FINDINGS: None. IMPRESSION: There is an acute or subacute infarct in the left occipital lobe measuring 24 x 32 mm. This is unchanged in appearance. Chronic microvascular changes are seen as well as moderate atrophy
--- NOTE | 2019-01-03 13:16 | CP.PCM.PN ---
<Trae Brewster - Last Filed: 01/03/19 14:19> Subjective - Date & Time of Evaluation Date of Evaluation: 01/03/19 Time of Evaluation: 13:10 - Subjective Subjective: Trae Brewster PGY1 Progress Note for Dr. Espinal Patient was examined at bedside this morning. He reports improvement in the headache and pain in his throat. Patient denies weakness. He reports never being told to take a blood thinner for his A.fib. As per his daughter Lisseth, pt got pacemaker in 2018. Objective - Vital Signs/Intake and Output Vital Signs (last 24 hours): Temp Pulse Resp BP Pulse Ox 97.9 F 63 20 108/64 96 01/03/19 07:15 01/03/19 07:15 01/03/19 07:15 01/03/19 07:15 01/03/19 07:15 Intake and Output: 01/03/19 01/03/19 06:59 18:59 Intake Total 300 Balance 300 - Medications Medications: Current Medications Dextrose (Dextrose 50% Inj) 0 ml IV STAT PRN; Protocol PRN Reason: Hypoglycemia Protocol Dextrose (Glutose 15) 0 gm PO ONCE PRN; Protocol PRN Reason: Hypoglycemia Protocol Digoxin (Digoxin) 0.125 mg PO 1800 [facility] Famotidine (Pepcid) 20 mg PO DAILY [facility] Last Admin: 01/03/19 10:22 Dose: 20 mg Finasteride (Proscar) 5 mg PO DAILY [facility] Last Admin: 01/03/19 10:22 Dose: 5 mg Glucagon (Glucagen Diagnostic Kit) 0 mg IM STAT PRN; Protocol PRN Reason: Hypoglycemia Protocol Hydroxyzine HCl (Atarax) 25 mg PO DAILY PRN PRN Reason: Allergy symptoms Dextrose (Dextrose 5% In Water 1000 Ml) 1,000 mls @ 0 mls/hr IV .Q0M PRN; Protocol PRN Reason: Hypoglycemia Protocol Insulin Human Regular (Novolin R) 0 unit SC ACHS [facility]; Protocol Last Admin: 01/03/19 07:30 Dose: Not Given Rosuvastatin Calcium (Crestor) 20 mg PO HS [facility] Last Admin: 01/02/19 21:40 Dose: 20 mg - Labs Labs: 01/03/19 07:05 01/03/19 07:05 PT 12.7 SECONDS (9.7-12.2) H 01/02/19 09:37 INR 1.2 01/02/19 09:37 APTT 28 SECONDS (21-34) 01/02/19 09:37 - Constitutional Appears: Well, No Acute Distress - Head Exam Head Exam: ATRAUMATIC, NORMOCEPHALIC - Eye Exam Eye Exam: EOMI, PERRL Pupil Exam: NORMAL ACCOMODATION - ENT Exam ENT Exam: Mucous Membranes Dry - Neck Exam Neck Exam: Normal Inspection - Respiratory Exam Respiratory Exam: Clear to Ausculation Bilateral, NORMAL BREATHING PATTERN. absent: Rales, Rhonchi, Wheezes - Cardiovascular Exam Cardiovascular Exam: Irregular Rhythm, +S1, +S2. absent: Gallop, Rubs, Murmur - GI/Abdominal Exam GI & Abdominal Exam: Soft, Normal Bowel Sounds. absent: Distended, Tenderness - Extremities Exam Extremities Exam: Normal Inspection. absent: Calf Tenderness, Pedal Edema - Neurological Exam Neurological Exam: Alert, Awake, CN II-XII Intact. absent: Motor Sensory Deficit Neuro motor strength exam: Left Upper Extremity: 4, Right Upper Extremity: 4, Left Lower Extremity: 4, Right Lower Extremity: 4 Additional comments: AAOx1, to person and place - Psychiatric Exam Psychiatric exam: Normal Affect, Normal Mood - Skin Skin Exam: Dry Assessment and Plan - Assessment and Plan (Free Text) Assessment: 88 year old male with PMH A.fib with pacemaker, DM2 presenting with altered mental status and called code stroke in ED. 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 Patient admitted for further evaluation and treatment of CVA. Plan: CVA - rpt CT head 01/03: acute or subacute infarct in L occcipital lobe measuring [id number]. Unchanged in appearance. Chronic microvascular changes with moderate atrophy. - CT head w/o contrast 01/02: acute vs. subacute infarction at L parietal occipital distribution with limited local mass effect. no midline shift, no hemorrhage. age-appropriate degenerative changes. - CTA head/neck: non-diagnostic - ECHO: normal LV systolic function, moderate , mild MR, trace TR - NIHSS score of 3 in ED, did not receive tPA due to unknown time of symptom onset - lipid panel: TG elevated at 185 - UCx: Gram + cocci, <10,000 CFU - tele monitoring - Crestor 20mg PO HS - hold anticoagulation at this time until repeat CT tomorrow for hemorrhagic conversion precaution - Neuro consulted, Dr. Judd - richard gonsales - f/u Carotid US - PT/OT - Speech/Language Eval - as per daughter, patient received MRI in 2018 however she cannot confirm make/company. consider MRI if more information available. A.fib with pacemaker - CHADSVASC score 5, will require anticoagulation - EKG: A.fib at 81 bpm - troponin negative - digoxin level 0.4 - digoxin 125mcg PO daily - ECHO: normal LV systolic funciton. normal chamber size. moderate , mild MR, trace TR - Cardio consulted, Dr. Cuellar - f/u recs DM2 - HbA1c 9.0 - low dose sliding scale - continue home Metformin - hypoglycemic protocol - accucheckbrent ACHS PPX: GI: Pepcid 20mg PO BID DVT: SCDs, hold other anticoagulation until CT tomorrow clear of hemorrhage CCD Patient seen and case reviewed with Dr. Espinal <Long Espinal - Last Filed: 01/03/19 16:39> Objective - Vital Signs/Intake and Output Vital Signs (last 24 hours): Temp Pulse Resp BP Pulse Ox 98.2 F 56 L 20 128/72 96 01/03/19 15:00 01/03/19 15:00 01/03/19 15:00 01/03/19 15:00 01/03/19 15:00 Intake and Output: 01/03/19 01/03/19 06:59 18:59 Intake Total 300 Balance 300 - Medications Medications: Current Medications Dextrose (Dextrose 50% Inj) 0 ml IV STAT PRN; Protocol PRN Reason: Hypoglycemia Protocol Dextrose (Glutose 15) 0 gm PO ONCE PRN; Protocol PRN Reason: Hypoglycemia Protocol Digoxin (Digoxin) 0.125 mg PO 1800 [facility] Famotidine (Pepcid) 20 mg PO DAILY [facility] Last Admin: 01/03/19 10:22 Dose: 20 mg Finasteride (Proscar) 5 mg PO DAILY [facility] Last Admin: 01/03/19 10:22 Dose: 5 mg Glucagon (Glucagen Diagnostic Kit) 0 mg IM STAT PRN; Protocol PRN Reason: Hypoglycemia Protocol Hydroxyzine HCl (Atarax) 25 mg PO DAILY PRN PRN Reason: Allergy symptoms Dextrose (Dextrose 5% In Water 1000 Ml) 1,000 mls @ 0 mls/hr IV .Q0M PRN; Protocol PRN Reason: Hypoglycemia Protocol Influenza Virus Vaccine (Flucelvax Quad [id number] Syr) 60 mcg IM .ONCE ONE Stop: 01/04/19 12:01 Insulin Human Regular (Novolin R) 0 unit SC [facility]; Protocol Last Admin: 01/03/19 11:30 Dose: Not Given Pneumococcal Polyvalent Vaccine (Pneumovax 23 Vaccine) 0.5 ml IM .ONCE ONE Stop: 01/04/19 12:01 Rosuvastatin Calcium (Crestor) 20 mg PO [facility] Last Admin: 01/02/19 21:40 Dose: 20 mg - Labs Labs: 01/03/19 07:05 01/03/19 07:05 PT 12.7 SECONDS (9.7-12.2) H 01/02/19 09:37 INR 1.2 01/02/19 09:37 APTT 28 SECONDS (21-34) 01/02/19 09:37 Attending/Attestation - Attestation I have personally seen and examined this patient.: Yes I have fully participated in the care of the patient.: Yes I have reviewed all pertinent clinical information, including history, physical exam and plan: Yes
[2019-01-03 13:22] LABS: FOLATE 13.2 ng/mL
[2019-01-03] MEDS ORDERED: Digoxin 125 mcg (0.125 mg) Tab PO SCH (18:00)
--- NOTE | 2019-01-03 20:14 | CARD ---
APPROVED REPORT Date of service: 01/02/2019 EKG Measurement Heart [id number] <Conclusion> Atrial fibrillation Nonspecific T wave abnormality Abnormal ECG
--- NOTE | 2019-01-03 20:50 | CP.PCM.CON ---
History of Present Illness - History of Present Illness History of Present Illness: Cardiac-Electrophysiology Consult Re: pacemaker function "No spikes despite heart rate in the forties" Chart imaging EKG echocardiogram and telemetry reviewed Seen interviewed and examined Mr. Mauro was admitted with altered mental status and was diagnosed to have a cerebral ischemic infarct he has a history of atrial fibrillation on intermittent anti-coagulation (apaxiban) and has a history of permanent pacemaker (unclear indication) and follow s up with Dr. Grier There is no history of syncope dizziness Exam No distress normal venous pressures Clear lungs 1/6 basal ejection murmur No edema labs: reviewed EKG showed atrial fibrillation with rates controlled Echo showed moderate aortic valve disease with preserved LV systolic function In absence of pacemaker settings its difficult to surmise pacemaker function He is seemingly not dependant on the device Tlemetry showed appropriate pacing at slower rates although the pacing spike is difficult to discern Suggest pacemaker interrogation (ordered) Place a magnet over the device and obtain an EKG Continue with anticoagulation per neurology Past Patient History - Infectious Disease Hx of Infectious Diseases: None - Past Social History Smoking Status: Unknown If Ever Smoked - CARDIAC Hx Pacemaker: Yes - PSYCHIATRIC Hx Substance Use: No - SURGICAL HISTORY Hx Surgeries: (unknown) - ANESTHESIA Hx Anesthesia: No Meds Allergies/Adverse Reactions: Allergies Allergy/AdvReac Type Severity Reaction Status Date / Time Unobtainable Allergy Verified 01/02/19 09:28 - Medications Medications: Current Medications Dextrose (Dextrose 50% Inj) 0 ml IV STAT PRN; Protocol PRN Reason: Hypoglycemia Protocol Dextrose (Glutose 15) 0 gm PO ONCE PRN; Protocol PRN Reason: Hypoglycemia Protocol Digoxin (Digoxin) 0.125 mg PO 1800 [facility] Famotidine (Pepcid) 20 mg PO DAILY [facility] Last Admin: 01/03/19 10:22 Dose: 20 mg Finasteride (Proscar) 5 mg PO DAILY [facility] Last Admin: 01/03/19 10:22 Dose: 5 mg Glucagon (Glucagen Diagnostic Kit) 0 mg IM STAT PRN; Protocol PRN Reason: Hypoglycemia Protocol Hydroxyzine HCl (Atarax) 25 mg PO DAILY PRN PRN Reason: Allergy symptoms Dextrose (Dextrose 5% In Water 1000 Ml) 1,000 mls @ 0 mls/hr IV .Q0M PRN; Protocol PRN Reason: Hypoglycemia Protocol Influenza Virus Vaccine (Flucelvax Quad 8065-7624 Syr) 60 mcg IM .ONCE ONE Stop: 01/04/19 12:01 Insulin Human Regular (Novolin R) 0 unit SC ACHS [facility]; Protocol Last Admin: 01/03/19 17:59 Dose: 1 units Pneumococcal Polyvalent Vaccine (Pneumovax 23 Vaccine) 0.5 ml IM .ONCE ONE Stop: 01/04/19 12:01 Rosuvastatin Calcium (Crestor) 20 mg PO HS [facility] Last Admin: 01/02/19 21:40 Dose: 20 mg Results - Vital Signs Recent Vital Signs: Last Vital Signs Temp 98.2 F 01/03/19 15:00 Pulse 56 L 01/03/19 15:00 Resp 20 01/03/19 15:00 BP 128/72 01/03/19 15:00 Pulse Ox 96 01/03/19 15:00 - Labs Result Diagrams: 01/03/19 07:05 01/03/19 07:05 Labs: Laboratory Results - last 24 hr 01/03/19 01/03/19 01/03/19 07:05 07:05 11:44 WBC 8.9 RBC 4.68 Hgb 14.2 Hct 42.4 MCV 90.7 MCH 30.3 MCHC 33.4 RDW 13.2 Plt Count 346 MPV 10.6 Neut % (Auto) 42.3 L Lymph % (Auto) 44.0 H [place] % (Auto) 9.8 Eos % (Auto) 2.7 Baso % (Auto) 1.2 Neut # (Auto) 3.7 Lymph # (Auto) 3.9 [place] # (Auto) 0.9 H Eos # (Auto) 0.2 Baso # (Auto) 0.1 Sodium 132 Potassium 4.1 Chloride 101 Carbon Dioxide 25 Anion Gap 11 BUN 22 H Creatinine 1.0 Est GFR ( Amer) > 60 Est GFR (Non-Af Amer) > 60 Random Glucose 134 H D Hemoglobin A1c 9.0 H Calcium 9.3 Total Bilirubin 0.7 AST 29 ALT 18 L Alkaline Phosphatase 54 Total Protein 6.2 L Albumin 3.7 Globulin 2.6 Albumin/Globulin Ratio 1.4 Vitamin B12 25-OH Vitamin D Total Folate TSH 3rd Generation 01/03/19 01/03/19 11:44 11:44 WBC RBC Hgb Hct MCV MCH MCHC RDW Plt Count MPV Neut % (Auto) Lymph % (Auto) [place] % (Auto) Eos % (Auto) Baso % (Auto) Neut # (Auto) Lymph # (Auto) [place] # (Auto) Eos # (Auto) Baso # (Auto) Sodium Potassium Chloride Carbon Dioxide Anion Gap BUN Creatinine Est GFR ( Amer) Est GFR (Non-Af Amer) Random Glucose Hemoglobin A1c Calcium Total Bilirubin AST ALT Alkaline Phosphatase Total Protein Albumin Globulin Albumin/Globulin Ratio Vitamin B12 374 25-OH Vitamin D Total 36.6 Folate 13.2 TSH 3rd Generation 4.13
--- NOTE | 2019-01-04 06:18 | CP.PCM.CON ---
History of Present Illness - History of Present Illness History of Present Illness: Reason For Consultation: A Fib Patient is a 88yo Male with PMH DM2 and A.bandar with pacemaker, brought in by ambulance to ED for altered mental status. Patient complains of throat pain and headache at this time. Most history is obtained from friend at bedside and daughter in law Luna over the phone. As per Ulna, patient complained of headache and generally not feeling well for the past 3 days. She requested the friend to go visit him last night. At that time, patient appeared "normal" to friend, who did not notice any difficulty talking, walking, or using limbs. He says patient at baseline has memory issues, sometimes confusing stories or repeating things. This morning, friend returned to visit patient around 8am, at which time he was slightly confused and with some unintelligible speech, complaining of headache and throat pain. Patient was still able to walk at this time, and friend did not notice facial droop. Patient and friend both deny any falls or trauma. Patient currently denies any trouble swallowing, blurry vision, numbness, tingling, or dizziness. SxH: pacemaker, unknown year FamH: denies SocH: denies tobacco, alcohol, or recreational drug use Allergies: not attainable at this time Meds: simivistatin 20mg PO daily, Metformin 500mg PO daily, Atarax 25mg PO daily, finasteride 5mg PO daily, Digoxin 125mcg PO daily PMD: Michelle ROS: positive: headache, throat pain. negative: chest pain, shortness of breath, abdominal pain, nausea, vomiting, diarrhea, dysuria, urinary incontinence, numbness, tingling, blurry vision, rashes. Present on Admission - Present on Admission Any Indicators Present on Admission: No Review of Systems - Review of Systems Review of Systems: as per HPI Physical Exam - Constitutional Appears: Well, No Acute Distress - Head Exam Head Exam: ATRAUMATIC - Eye Exam Eye Exam: EOMI, Normal appearance, PERRL Pupil Exam: NORMAL ACCOMODATION - ENT Exam ENT Exam: Mucous Membranes Moist - Neck Exam Neck exam: Negative for: Lymphadenopathy, Tenderness, Thyromegaly - Respiratory Exam Respiratory Exam: Clear to Auscultation Bilateral, NORMAL BREATHING PATTERN. absent: Rales, Rhonchi, Wheezes - Cardiovascular Exam Cardiovascular Exam: Irregular Rhythm, +S1, +S2. absent: Gallop, JVD, Rubs - GI/Abdominal Exam GI & Abdominal Exam: Normal Bowel Sounds, Soft. absent: Distended, Firm, Tenderness - Extremities Exam Extremities exam: Positive for: pedal pulses present. Negative for: calf tenderness, pedal edema, tenderness - Neurological Exam Neurological exam: CN II-XII Intact, Reflexes Normal Additional comments: AAOx1, to person. muscle strength 4/5 in b/l upper and lower extremities no sensory deficits unable to follow commands to assess dysdiadochokinesia - Psychiatric Exam Psychiatric exam: Normal Affect, Normal Mood - Skin Skin Exam: Dry, Normal Color, Warm Results - Vital Signs Recent Vital Signs: Last Vital Signs Temp 98.5 F 01/02/19 09:29 Pulse 86 01/02/19 10:17 Resp 16 01/02/19 10:17 BP 116/70 01/02/19 10:17 Pulse Ox 96 01/02/19 10:17 - Labs Result Diagrams: 01/02/19 09:37 01/02/19 09:37 Labs: Laboratory Results - last 24 hr 01/02/19 01/02/19 01/02/19 09:29 09:37 09:37 WBC 9.0 RBC 5.29 Hgb 15.9 Hct 48.3 MCV 91.3 MCH 29.9 MCHC 32.8 L RDW 13.5 Plt Count 368 MPV 10.8 Neut % (Auto) 54.1 Lymph % (Auto) 33.2 [place] % (Auto) 9.8 Eos % (Auto) 1.7 Baso % (Auto) 1.2 Neut # (Auto) 4.9 Lymph # (Auto) 3.0 [place] # (Auto) 0.9 H Eos # (Auto) 0.2 Baso # (Auto) 0.1 PT 12.7 H INR 1.2 APTT 28 Sodium Potassium Chloride Carbon Dioxide Anion Gap BUN Creatinine Est GFR ( Amer) Est GFR (Non-Af Amer) POC Glucose (mg/dL) 229 H Random Glucose Hemoglobin A1c Calcium Total Bilirubin AST ALT Alkaline Phosphatase Troponin I Total Protein Albumin Globulin Albumin/Globulin Ratio Triglycerides Cholesterol LDL Cholesterol Direct HDL Cholesterol Urine Color Urine Clarity Urine pH Ur Specific [place] Urine Protein Urine Glucose (UA) Urine Ketones Urine Blood Urine Nitrate Urine Bilirubin Urine Urobilinogen Ur Leukocyte Esterase Urine WBC (Auto) Urine RBC (Auto) Digoxin Blood Type Antibody Screen 01/02/19 01/02/19 01/02/19 09:37 09:37 09:40 WBC RBC Hgb Hct MCV MCH MCHC RDW Plt Count MPV Neut % (Auto) Lymph % (Auto) [place] % (Auto) Eos % (Auto) Baso % (Auto) Neut # (Auto) Lymph # (Auto) [place] # (Auto) Eos # (Auto) Baso # (Auto) PT INR APTT Sodium 133 Potassium 4.2 Chloride 97 L Carbon Dioxide 28 Anion Gap 12 BUN 18 Creatinine 1.1 Est GFR ( Amer) > 60 Est GFR (Non-Af Amer) > 60 POC Glucose (mg/dL) Random Glucose 207 H Hemoglobin A1c 9.0 H Calcium 9.5 Total Bilirubin 1.0 AST 24 ALT 16 L Alkaline Phosphatase 49 Troponin I < 0.0120 Total Protein 7.1 Albumin 4.0 Globulin 3.1 Albumin/Globulin Ratio 1.3 Triglycerides 185 H Cholesterol 169 LDL Cholesterol Direct 116 HDL Cholesterol 51 Urine Color Urine Clarity Urine pH Ur Specific [place] Urine Protein Urine Glucose (UA) Urine Ketones Urine Blood Urine Nitrate Urine Bilirubin Urine Urobilinogen Ur Leukocyte Esterase Urine WBC (Auto) Urine RBC (Auto) Digoxin Blood Type O POSITIVE Antibody Screen Negative 01/02/19 01/02/19 10:37 11:10 WBC RBC Hgb Hct MCV MCH MCHC RDW Plt Count MPV Neut % (Auto) Lymph % (Auto) [place] % (Auto) Eos % (Auto) Baso % (Auto) Neut # (Auto) Lymph # (Auto) [place] # (Auto) Eos # (Auto) Baso # (Auto) PT INR APTT Sodium Potassium Chloride Carbon Dioxide Anion Gap BUN Creatinine Est GFR ( Amer) Est GFR (Non-Af Amer) POC Glucose (mg/dL) Random Glucose Hemoglobin A1c Calcium Total Bilirubin AST ALT Alkaline Phosphatase Troponin I Total Protein Albumin Globulin Albumin/Globulin Ratio Triglycerides Cholesterol LDL Cholesterol Direct HDL Cholesterol Urine Color Yellow Urine Clarity Clear Urine pH 6.0 Ur Specific [place] 1.010 Urine Protein Negative Urine Glucose (UA) 1+ H Urine Ketones Trace Urine Blood Negative Urine Nitrate Negative Urine Bilirubin Negative Urine Urobilinogen Normal Ur Leukocyte Esterase Neg Urine WBC (Auto) < 1 Urine RBC (Auto) 2 Digoxin < 0.4 L Blood Type Antibody Screen Assessment & Plan - Assessment and Plan (Free Text) Assessment: 88 year old male with PMH A.fib with pacemaker, DM2 presenting with altered mental status and called code stroke in ED. 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 Patient admitted for further evaluation and treatment of CVA. Plan: CVA - pt with altered mental status - CT head w/o contrast: acute vs. subacute infacrtion at L parietal occipital distribution with limited local mass effect. no midline shift, no hemorrhage. age-appropriate degenerative changes. - CTA head/neck: non-diagnostic - given ASA 325mg in ED, as per Neuro - given Plavix 300mg in ED, as per Neuro - not tpa candidate at this time due to uncertain time on onset of symptoms - NIHSS score of 3 - passed bedside swallow test - lipid panel: TG elevated at 185 - f/u UCx to r/o infectious cause of altered mental status - I/Os - tele monitoring - Crestor 20mg PO HS - ASA 325mg PO daily - Plavix 75mg PO daily - Neuro consulted, Dr. Judd - recs appreciated - PT/OT - Speech/Language Eval A.fib with pacemaker - EKG: A.fib at 81 bpm - troponin negative - digoxin level 0.4 - continue digoxin 125mcg PO daily - f/u ECHO - Cardio consulted, Dr. Grier - f/u recs DM2 - low dose sliding scale - home metformin held due to IV contrast, resume in 24 hrs - hypoglycemic protocol - accuchecks ACHS PPX: GI: Pepcid 20mg PO BID DVT: SCDs CCD CVA management as per neurology Past Patient History - Infectious Disease Hx of Infectious Diseases: None - Past Social History Smoking Status: Unknown If Ever Smoked - CARDIAC Hx Pacemaker: Yes - PSYCHIATRIC Hx Substance Use: No - SURGICAL HISTORY Hx Surgeries: (unknown) - ANESTHESIA Hx Anesthesia: No Meds Allergies/Adverse Reactions: Allergies Allergy/AdvReac Type Severity Reaction Status Date / Time Unobtainable Allergy Verified 01/02/19 09:28 - Medications Medications: Current Medications Dextrose (Dextrose 50% Inj) 0 ml IV STAT PRN; Protocol PRN Reason: Hypoglycemia Protocol Dextrose (Glutose 15) 0 gm PO ONCE PRN; Protocol PRN Reason: Hypoglycemia Protocol Famotidine (Pepcid) 20 mg PO DAILY [facility] Last Admin: 01/03/19 10:22 Dose: 20 mg Finasteride (Proscar) 5 mg PO DAILY [facility] Last Admin: 01/03/19 10:22 Dose: 5 mg Glucagon (Glucagen Diagnostic Kit) 0 mg IM STAT PRN; Protocol PRN Reason: Hypoglycemia Protocol Hydroxyzine HCl (Atarax) 25 mg PO DAILY PRN PRN Reason: Allergy symptoms Dextrose (Dextrose 5% In Water 1000 Ml) 1,000 mls @ 0 mls/hr IV .Q0M PRN; Protocol PRN Reason: Hypoglycemia Protocol Influenza Virus Vaccine (Flucelvax Quad [id number] Syr) 60 mcg IM .ONCE ONE Stop: 01/04/19 12:01 Insulin Human Regular (Novolin R) 0 unit SC [facility]; Protocol Last Admin: 01/03/19 21:33 Dose: Not Given Pneumococcal Polyvalent Vaccine (Pneumovax 23 Vaccine) 0.5 ml IM .ONCE ONE Stop: 01/04/19 12:01 Rosuvastatin Calcium (Crestor) [address] [facility] Last Admin: 01/03/19 21:33 Dose: 20 mg Results - Vital Signs Recent Vital Signs: Last Vital Signs Temp 98.2 F 01/03/19 23:40 Pulse 60 01/03/19 23:40 Resp 20 01/03/19 23:40 BP 137/65 01/03/19 23:40 Pulse Ox 97 01/03/19 23:40 - Labs Result Diagrams: 01/03/19 07:05 01/03/19 07:05 Labs: Laboratory Results - last 24 hr 01/03/19 01/03/19 01/03/19 07:05 07:05 11:44 WBC 8.9 RBC 4.68 Hgb 14.2 Hct 42.4 MCV 90.7 MCH 30.3 MCHC 33.4 RDW 13.2 Plt Count 346 MPV 10.6 Neut % (Auto) 42.3 L Lymph % (Auto) 44.0 H [place] % (Auto) 9.8 Eos % (Auto) 2.7 Baso % (Auto) 1.2 Neut # (Auto) 3.7 Lymph # (Auto) 3.9 [place] # (Auto) 0.9 H Eos # (Auto) 0.2 Baso # (Auto) 0.1 Sodium 132 Potassium 4.1 Chloride 101 Carbon Dioxide 25 Anion Gap 11 BUN 22 H Creatinine 1.0 Est GFR ( Amer) > 60 Est GFR (Non-Af Amer) > 60 Random Glucose 134 H D Hemoglobin A1c 9.0 H Calcium 9.3 Total Bilirubin 0.7 AST 29 ALT 18 L Alkaline Phosphatase 54 Total Protein 6.2 L Albumin 3.7 Globulin 2.6 Albumin/Globulin Ratio 1.4 Vitamin B12 25-OH Vitamin D Total Folate TSH 3rd Generation 01/03/19 01/03/19 11:44 11:44 WBC RBC Hgb Hct MCV MCH MCHC RDW Plt Count MPV Neut % (Auto) Lymph % (Auto) [place] % (Auto) Eos % (Auto) Baso % (Auto) Neut # (Auto) Lymph # (Auto) [place] # (Auto) Eos # (Auto) Baso # (Auto) Sodium Potassium Chloride Carbon Dioxide Anion Gap BUN Creatinine Est GFR ( Amer) Est GFR (Non-Af Amer) Random Glucose Hemoglobin A1c Calcium Total Bilirubin AST ALT Alkaline Phosphatase Total Protein Albumin Globulin Albumin/Globulin Ratio Vitamin B12 374 25-OH Vitamin D Total 36.6 Folate 13.2 TSH 3rd Generation 4.13
--- NOTE | 2019-01-04 06:21 | CP.PCM.PN ---
Subjective - Date & Time of Evaluation Date of Evaluation: 01/03/19 Time of Evaluation: 20:10 - Subjective Subjective: Patient seen and evaluated Denies chest pain and dyspnea Physical Exam - Constitutional Appears: Well, No Acute Distress - Head Exam Head Exam: ATRAUMATIC - Eye Exam Eye Exam: EOMI, Normal appearance, PERRL Pupil Exam: NORMAL ACCOMODATION - ENT Exam ENT Exam: Mucous Membranes Moist - Neck Exam Neck exam: Negative for: Lymphadenopathy, Tenderness, Thyromegaly - Respiratory Exam Respiratory Exam: Clear to Auscultation Bilateral, NORMAL BREATHING PATTERN. absent: Rales, Rhonchi, Wheezes - Cardiovascular Exam Cardiovascular Exam: Irregular Rhythm, +S1, +S2. absent: Gallop, JVD, Rubs - GI/Abdominal Exam GI & Abdominal Exam: Normal Bowel Sounds, Soft. absent: Distended, Firm, Tenderness - Extremities Exam Extremities exam: Positive for: pedal pulses present. Negative for: calf tenderness, pedal edema, tenderness - Neurological Exam Neurological exam: CN II-XII Intact, Reflexes Normal Additional comments: AAOx1, to person. muscle strength 4/5 in b/l upper and lower extremities no sensory deficits unable to follow commands to assess dysdiadochokinesia - Psychiatric Exam Psychiatric exam: Normal Affect, Normal Mood - Skin Skin Exam: Dry, Normal Color, Warm Assessment & Plan - Assessment and Plan (Free Text) Assessment: 88 year old male with PMH A.fib with pacemaker, DM2 presenting with altered mental status and called code stroke in ED. 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 Patient admitted for further evaluation and treatment of CVA. Plan: CVA - pt with altered mental status - CT head w/o contrast: acute vs. subacute infacrtion at L parietal occipital distribution with limited local mass effect. no midline shift, no hemorrhage. age-appropriate degenerative changes. - CTA head/neck: non-diagnostic - given ASA 325mg in ED, as per Neuro - given Plavix 300mg in ED, as per Neuro - not tpa candidate at this time due to uncertain time on onset of symptoms - NIHSS score of 3 - passed bedside swallow test - lipid panel: TG elevated at 185 - f/u UCx to r/o infectious cause of altered mental status - I/Os - tele monitoring - Crestor 20mg PO HS - ASA 325mg PO daily - Plavix 75mg PO daily - Neuro consulted, Dr. Judd - recs appreciated - PT/OT - Speech/Language Eval A.fib with pacemaker - EKG: Luis.fib at 81 bpm - troponin negative - digoxin level 0.4 - continue digoxin 125mcg PO daily - f/u ECHO - Cardio consulted, Dr. Grier - f/u recs DM2 - low dose sliding scale - home metformin held due to IV contrast, resume in 24 hrs - hypoglycemic protocol - accuchecks [facility] PPX: GI: Pepcid 20mg PO BID DVT: SCDs CCD CVA management as per neurology PPM malfunction: EP consult appreciated Objective - Vital Signs/Intake and Output Vital Signs (last 24 hours): Temp Pulse Resp BP Pulse Ox 98.2 F 60 20 137/65 97 01/03/19 23:40 01/03/19 23:40 01/03/19 23:40 01/03/19 23:40 01/03/19 23:40 - Medications Medications: Current Medications Dextrose (Dextrose 50% Inj) 0 ml IV STAT PRN; Protocol PRN Reason: Hypoglycemia Protocol Dextrose (Glutose 15) 0 gm PO ONCE PRN; Protocol PRN Reason: Hypoglycemia Protocol Famotidine (Pepcid) 20 mg PO DAILY [facility] Last Admin: 01/03/19 10:22 Dose: 20 mg Finasteride (Proscar) 5 mg PO DAILY [facility] Last Admin: 01/03/19 10:22 Dose: 5 mg Glucagon (Glucagen Diagnostic Kit) 0 mg IM STAT PRN; Protocol PRN Reason: Hypoglycemia Protocol Hydroxyzine HCl (Atarax) 25 mg PO DAILY PRN PRN Reason: Allergy symptoms Dextrose (Dextrose 5% In Water 1000 Ml) 1,000 mls @ 0 mls/hr IV .Q0M PRN; Protocol PRN Reason: Hypoglycemia Protocol Influenza Virus Vaccine (Flucelvax Quad [id number] Syr) 60 mcg IM .ONCE ONE Stop: 01/04/19 12:01 Insulin Human Regular (Novolin R) 0 unit SC [facility]; Protocol Last Admin: 01/03/19 21:33 Dose: Not Given Pneumococcal Polyvalent Vaccine (Pneumovax 23 Vaccine) 0.5 ml IM .ONCE ONE Stop: 01/04/19 12:01 Rosuvastatin Calcium (Crestor) 20 mg PO [facility] Last Admin: 01/03/19 21:33 Dose: 20 mg - Labs Labs: 02/14/19 07:05 01/03/19 07:05 PT 12.7 SECONDS (9.7-12.2) H 01/02/19 09:37 INR 1.2 01/02/19 09:37 APTT 28 SECONDS (21-34) 01/02/19 09:37
[2019-01-04 06:50] LABS: ALB/GLOB RATIO 1.4 (1.0-2.1); ALBUMIN 3.7 g/dL (3.5-5.0); ALT/SGPT 18 U/L (21-72); AST/SGOT 19 U/L (17-59); BLOOD UREA NITROGEN 17 mg/dL (9-20); CALCIUM 9.6 mg/dl (8.6-10.4); GFR NON-AFRICAN AMERICAN > 60
[2019-01-04 07:21] LABS: BASO # 0.1 K/uL (0.0-0.2); BASO % 0.7 % (0.0-2.0); EOS # 0.4 K/uL (0.0-0.7); HEMOGLOBIN 14.1 g/dL (12.0-18.0); LYMPH # 3.7 K/uL (1.0-4.3); LYMPH % 39.3 % (20.0-40.0); MEAN CELL VOLUME 91.7 fL (80.0-94.0); MEAN CORPUSCULAR HEMOGLOBIN 29.9 pg (27.0-31.0); MEAN CORPUSCULAR HGB CONC 32.7 g/dL (33.0-37.0); MEAN PLATELET VOLUME 11.1 fL (7.2-11.7); MONO # 0.9 K/uL (0.0-0.8); MONO % 9.2 % (0.0-10.0); NEUT # 4.4 K/uL (1.8-7.0); NEUT % 46.8 % (50.0-75.0); NRBC % 0.2 % (0.0-2.0); RBC 4.69 Mil/uL (4.40-5.90); RED CELL DISTRIBUTION WIDTH 13.5 % (11.5-14.5); WHITE BLOOD COUNT 9.4 K/uL (4.8-10.8)
[2019-01-04] MEDS: (Novolin R) Insulin Human Regular 100 units/ml vial SC SCH ×4 (08:11→22:29)
[2019-01-04] MEDS: Influenza Vaccine 60 mcg/0.5 mL SYR (4YR UP) IM ONE ×2 (12:18→12:23)
[2019-01-04] MEDS: Pneumococcal 23-Valent Vaccine IM ONE ×2 (12:19→12:24)
--- NOTE | 2019-01-04 14:29 | CP.PCM.PN ---
Subjective - Date & Time of Evaluation Date of Evaluation: 01/04/19 Time of Evaluation: 14:24 - Subjective Subjective: PGY-1 Medicine Progress Note for Dr. Espinal Patient seen and examined at bedside, resting comfortably and in no acute distress. Denies any headaches, changes in vision, weakness, dizziness, chest pain, palpitations, sob, cough, abdominal pain, n/v/d/c. Objective - Vital Signs/Intake and Output Vital Signs (last 24 hours): Temp Pulse Resp BP Pulse Ox 98 F 70 20 161/79 H 96 01/04/19 07:00 01/04/19 11:18 01/04/19 07:00 01/04/19 07:00 01/04/19 07:00 - Medications Medications: Current Medications Aspirin (Aspirin Chewable) [address] [facility] Last Admin: 01/04/19 10:19 Dose: 81 mg Dextrose (Dextrose 50% Inj) 0 ml IV STAT PRN; Protocol PRN Reason: Hypoglycemia Protocol Dextrose (Glutose 15) 0 gm PO ONCE PRN; Protocol PRN Reason: Hypoglycemia Protocol Famotidine (Pepcid) [address] [facility] Last Admin: 01/04/19 09:47 Dose: 20 mg Finasteride (Proscar) [address] [facility] Last Admin: 01/04/19 09:47 Dose: 5 mg Glucagon (Glucagen Diagnostic Kit) 0 mg IM STAT PRN; Protocol PRN Reason: Hypoglycemia Protocol Hydroxyzine HCl (Atarax) 25 mg PO DAILY PRN PRN Reason: Allergy symptoms Dextrose (Dextrose 5% In Water 1000 Ml) 1,000 mls @ 0 mls/hr IV .Q0M PRN; Protocol PRN Reason: Hypoglycemia Protocol Insulin Human Regular (Novolin R) [address] [facility]; Protocol Last Admin: 01/04/19 12:17 Dose: 2 units Rosuvastatin Calcium (Crestor) [address] [facility] Last Admin: 01/03/19 21:33 Dose: 20 mg - Labs Labs: 01/04/19 06:22 01/04/19 06:22 PT 12.7 SECONDS (9.7-12.2) H 01/02/19 09:37 INR 1.2 01/02/19 09:37 APTT 28 SECONDS (21-34) 01/02/19 09:37 - Constitutional Appears: Non-toxic, No Acute Distress - Head Exam Head Exam: ATRAUMATIC, NORMAL INSPECTION, NORMOCEPHALIC - Eye Exam Eye Exam: EOMI, Normal appearance Pupil Exam: NORMAL ACCOMODATION - ENT Exam ENT Exam: Mucous Membranes Moist, Normal Exam - Neck Exam Neck Exam: Full ROM, Normal Inspection - Respiratory Exam Respiratory Exam: Clear to Ausculation Bilateral, NORMAL BREATHING PATTERN. absent: Accessory Muscle Use, Rales, Rhonchi, Wheezes, Respiratory Distress, Stridor - Cardiovascular Exam Cardiovascular Exam: Irregular Rhythm, +S1, +S2 - GI/Abdominal Exam GI & Abdominal Exam: Soft, Normal Bowel Sounds - Extremities Exam Extremities Exam: Normal Capillary Refill, Normal Inspection - Back Exam Back Exam: NORMAL INSPECTION - Neurological Exam Neurological Exam: Alert, Awake, Oriented x3 - Psychiatric Exam Psychiatric exam: Normal Affect, Normal Mood - Skin Skin Exam: Dry, Intact, Normal Color, Warm Assessment and Plan - Assessment and Plan (Free Text) Assessment: 88 year old male with PMH A.fib with pacemaker, DM2 presenting with altered mental status and called code stroke in ED. 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 Patient admitted for further evaluation and treatment of CVA. Plan: CVA -telemetry monitoring -CT head (01/03): acute or subacute infarct in L occcipital lobe measuring 24x32 mm. Unchanged in appearance. Chronic microvascular changes with moderate atrophy. -f/u MRI, pending pacemaker compatibility per Dr. Judd -ECHO: normal LV systolic function, moderate , mild MR, trace TR -lipid panel: TG elevated at 185 -c/w statin -may start on Eliquis per Neuro recs (Dr. Judd) -PT/OT -Speech/Language Eval Atrial fibrillation with pacemaker - CHADSVASC score 5, will require anticoagulation - EKG: A.fib at 81 bpm - troponin negative - digoxin level 0.4 - digoxin held given low-normal HR - ECHO: normal LV systolic funciton. normal chamber size. moderate , mild MR, trace TR - Cardio recs (Dr. Cuellar) appreciated DM2 -HbA1c 9.0 -ISS low dose -home Metformin held -hypoglycemic protocol -accuchecks ACHS PPx, Diet, Disposition -DVT ppx: SCDs, eliquis -GI ppx: pepcid 20 mg PO BID -PT/OT -Disposition: awaiting Neuro clearance prior to d/c. F/U MRI, if pacemaker compatible Case discussed with Dr. Teddy Villaseñor DO, PGY-1
--- NOTE | 2019-01-04 14:48 | CP.PCM.PN ---
<Shannan Pires - Last Filed: 01/04/19 15:10> Subjective - Date & Time of Evaluation Date of Evaluation: 01/04/19 Time of Evaluation: 09:00 - Subjective Subjective: PGY2- Neuro Progress Note Patient seen and examined at bedside and in no acute distress. Patient does not know where he is and says it is 1996. Patient has no complaints. Patient denies headache, dizziness, visual changes, chest pain, shortness of breath, abdominal pain, nausea, vomiting, constipation, or diarrhea. Objective - Vital Signs/Intake and Output Vital Signs (last 24 hours): Temp Pulse Resp BP Pulse Ox 98 F 70 20 161/79 H 96 01/04/19 07:00 01/04/19 11:18 01/04/19 07:00 01/04/19 07:00 01/04/19 07:00 - Medications Medications: Current Medications Aspirin (Aspirin Chewable) 81 mg PO DAILY [facility] Last Admin: 01/04/19 10:19 Dose: 81 mg Dextrose (Dextrose 50% Inj) 0 ml IV STAT PRN; Protocol PRN Reason: Hypoglycemia Protocol Dextrose (Glutose 15) 0 gm PO ONCE PRN; Protocol PRN Reason: Hypoglycemia Protocol Famotidine (Pepcid) 20 mg PO DAILY [facility] Last Admin: 01/04/19 09:47 Dose: 20 mg Finasteride (Proscar) 5 mg PO DAILY [facility] Last Admin: 01/04/19 09:47 Dose: 5 mg Glucagon (Glucagen Diagnostic Kit) 0 mg IM STAT PRN; Protocol PRN Reason: Hypoglycemia Protocol Hydroxyzine HCl (Atarax) 25 mg PO DAILY PRN PRN Reason: Allergy symptoms Dextrose (Dextrose 5% In Water 1000 Ml) 1,000 mls @ 0 mls/hr IV .Q0M PRN; Protocol PRN Reason: Hypoglycemia Protocol Insulin Human Regular (Novolin R) 0 unit SC ACHS [facility]; Protocol Last Admin: 01/04/19 12:17 Dose: 2 units Rosuvastatin Calcium (Crestor) 20 mg PO HS [facility] Last Admin: 01/03/19 21:33 Dose: 20 mg - Labs Labs: 01/04/19 06:22 01/04/19 06:22 PT 12.7 SECONDS (9.7-12.2) H 01/02/19 09:37 INR 1.2 01/02/19 09:37 APTT 28 SECONDS (21-34) 01/02/19 09:37 - Additional Findings Additional findings: - Constitutional Appears: Non-toxic, No Acute Distress - Head Exam Head Exam: ATRAUMATIC, NORMAL INSPECTION, NORMOCEPHALIC - Eye Exam Eye Exam: EOMI, Normal appearance - ENT Exam ENT Exam: Mucous Membranes Moist - Respiratory Exam Respiratory Exam: Clear to Ausculation Bilateral, NORMAL BREATHING PATTERN - Cardiovascular Exam Cardiovascular Exam: Irregular Rhythm, +S1, +S2 - GI/Abdominal Exam GI & Abdominal Exam: Soft, Normal Bowel Sounds - Extremities Exam Extremities Exam: Normal Inspection - Back Exam Back Exam: NORMAL INSPECTION - Neurological Exam Neurological Exam: Alert, Awake, Oriented x3 Neuro motor strength exam: Left Upper Extremity: 5, Right Upper Extremity: 5, Left Lower Extremity: 5, Right Lower Extremity: 5 Additional comments: Partial receptive and productive aphasia. - Psychiatric Exam Psychiatric exam: Normal Affect, Normal Mood - Skin Skin Exam: Intact, Normal Color, Warm Assessment and Plan - Assessment and Plan (Free Text) Assessment: (1) Ischemic stroke Assessment and Plan: Imaging: Head CT (01/03/19): there is an acute or subacute infarct in the left occipital lobe measuring 24 x 32mm. This is unchanged in appearance. Chronic microvascular changes are seen as well as moderate atrophy Head CT (01/02/19): findings compatible with acute or subacute infarction at the left parietal occipital distribution with limited local mass effect. No midline shift. No gross intracranial hemorrhage appreciable. age appropriate related neuro degenerative change are identified with chronic lacune at the right cerebellar base and right frontal lobe. Head and Neck CTA (01/02/19): markedly limited and essentially nondiagnostic stud y Echocardiogram (01/02/19): technically limited and difficult study. Normal LV systolic function. Normal chamber size. Moderate . Mild MR. Trace to mild TR. pacemaker is NOT MRI compatible f/u Carotid doppler ultrasound HbA1c: 9.0 lipid panel: Triglycerides: 185, Cholesterol 169, LDL 116, HDL 51 B12: 374, folate: 13.2 TSH: 4.13 vitamin D: 36.6 PT/OT eval and treatment Case management consult meds: * started Eliquis 5mg po BID on 01/04/[address] Binta Pires, PGY2 <Rafat Judd - Last Filed: 01/05/19 14:20> Objective - Vital Signs/Intake and Output Vital Signs (last 24 hours): Temp Pulse Resp BP Pulse Ox 98.3 F 63 20 151/75 H 97 01/05/19 07:10 01/05/19 07:10 01/05/19 07:10 01/05/19 07:10 01/05/19 07:10 Intake and Output: 01/05/19 01/05/19 06:59 18:59 Intake Total 200 Output Total 200 Balance 0 - Medications Medications: Current Medications Apixaban (Eliquis) 2.5 mg PO BID [facility] Last Admin: 01/05/19 09:45 Dose: 2.5 mg Aspirin (Aspirin Chewable) 81 mg PO DAILY [facility] Last Admin: 01/05/19 09:45 Dose: 81 mg Dextrose (Dextrose 50% Inj) 0 ml IV STAT PRN; Protocol PRN Reason: Hypoglycemia Protocol Dextrose (Glutose 15) 0 gm PO ONCE PRN; Protocol PRN Reason: Hypoglycemia Protocol Famotidine (Pepcid) 20 mg PO DAILY [facility] Last Admin: 01/05/19 09:45 Dose: 20 mg Finasteride (Proscar) 5 mg PO DAILY [facility] Last Admin: 01/05/19 09:44 Dose: 5 mg Glucagon (Glucagen Diagnostic Kit) 0 mg IM STAT PRN; Protocol PRN Reason: Hypoglycemia Protocol Hydroxyzine HCl (Atarax) 25 mg PO DAILY PRN PRN Reason: Allergy symptoms Dextrose (Dextrose 5% In Water 1000 Ml) 1,000 mls @ 0 mls/hr IV .Q0M PRN; Protocol PRN Reason: Hypoglycemia Protocol Insulin Human Regular (Novolin R) 0 unit SC ACHS [facility]; Protocol Last Admin: 01/05/19 12:02 Dose: 2 units Rosuvastatin Calcium (Crestor) 20 mg PO HS [facility] Last Admin: 01/04/19 22:29 Dose: 20 mg - Labs Labs: 01/05/19 06:50 01/05/19 06:50 PT 12.7 SECONDS (9.7-12.2) H 01/02/19 09:37 INR 1.2 01/02/19 09:37 APTT 28 SECONDS (21-34) 01/02/19 09:37 Assessment and Plan (1) Ischemic stroke Status: Acute Attending/Attestation - Attestation I have personally seen and examined this patient.: Yes I have fully participated in the care of the patient.: Yes I have reviewed all pertinent clinical information, including history, physical exam and plan: Yes Notes (Text): I agree with the assessment and plan. Will start secondary stroke prevention in the setting of atrial fibrillation with Eliquis.
[2019-01-04] MEDS ORDERED: Digoxin 500 mcg/2ml (0.5 mg/2ml) Inj IVP ONE (23:56)
[2019-01-05 00:14] VITALS: PULSE 139
--- NOTE | 2019-01-05 06:48 | CP.PCM.PN ---
<Tera Brewster - Last Filed: 01/06/19 01:20> Subjective - Date & Time of Evaluation Date of Evaluation: 01/05/19 Time of Evaluation: 06:47 - Subjective Subjective: HOSPITALIST SERVICE Pt s/e at bedside, denies any acute events overnight, denies cp sob fc nv, no issues endorsed from nursing Objective - Vital Signs/Intake and Output Vital Signs (last 24 hours): Temp Pulse Resp BP Pulse Ox 98.9 F 113 H 20 150/79 96 01/04/19 23:30 01/05/19 00:42 01/05/19 00:42 01/05/19 00:42 01/05/19 00:42 Intake and Output: 01/04/19 01/05/19 18:59 06:59 Intake Total 350 Output Total 200 Balance 350 -200 - Medications Medications: Current Medications Apixaban (Eliquis) 2.5 mg PO BID [facility] Last Admin: 01/04/19 18:02 Dose: 2.5 mg Aspirin (Aspirin Chewable) 81 mg PO DAILY [facility] Last Admin: 01/04/19 10:19 Dose: 81 mg Dextrose (Dextrose 50% Inj) 0 ml IV STAT PRN; Protocol PRN Reason: Hypoglycemia Protocol Dextrose (Glutose 15) 0 gm PO ONCE PRN; Protocol PRN Reason: Hypoglycemia Protocol Famotidine (Pepcid) 20 mg PO DAILY [facility] Last Admin: 01/04/19 09:47 Dose: 20 mg Finasteride (Proscar) 5 mg PO DAILY [facility] Last Admin: 01/04/19 09:47 Dose: 5 mg Glucagon (Glucagen Diagnostic Kit) 0 mg IM STAT PRN; Protocol PRN Reason: Hypoglycemia Protocol Hydroxyzine HCl (Atarax) 25 mg PO DAILY PRN PRN Reason: Allergy symptoms Dextrose (Dextrose 5% In Water 1000 Ml) 1,000 mls @ 0 mls/hr IV .Q0M PRN; Protocol PRN Reason: Hypoglycemia Protocol Insulin Human Regular (Novolin R) 0 unit SC ACHS [facility]; Protocol Last Admin: 01/04/19 22:29 Dose: Not Given Rosuvastatin Calcium (Crestor) 20 mg PO HS [facility] Last Admin: 01/04/19 22:29 Dose: 20 mg - Labs Labs: 01/04/19 06:22 01/04/19 06:22 PT 12.7 SECONDS (9.7-12.2) H 01/02/19 09:37 INR 1.2 01/02/19 09:37 APTT 28 SECONDS (21-34) 01/02/19 09:37 - Additional Findings Additional findings: - Constitutional Appears: Non-toxic, No Acute Distress - Head Exam Head Exam: ATRAUMATIC, NORMAL INSPECTION, NORMOCEPHALIC - Eye Exam Eye Exam: EOMI, Normal appearance Pupil Exam: NORMAL ACCOMODATION - ENT Exam ENT Exam: Mucous Membranes Moist, Normal Exam - Neck Exam Neck Exam: Full ROM, Normal Inspection - Respiratory Exam Respiratory Exam: Clear to Ausculation Bilateral, NORMAL BREATHING PATTERN. absent: Accessory Muscle Use, Rales, Rhonchi, Wheezes, Respiratory Distress, Stridor - Cardiovascular Exam Cardiovascular Exam: Irregular Rhythm, +S1, +S2 - GI/Abdominal Exam GI & Abdominal Exam: Soft, Normal Bowel Sounds - Extremities Exam Extremities Exam: Normal Capillary Refill, Normal Inspection - Back Exam Back Exam: NORMAL INSPECTION - Neurological Exam Neurological Exam: Alert, Awake, Oriented x3 - Psychiatric Exam Psychiatric exam: Normal Affect, Normal Mood - Skin Skin Exam: Dry, Intact, Normal Color, Warm Assessment and Plan - Assessment and Plan (Free Text) Assessment: 88 year old male with PMH A.fib with pacemaker, DM2 presenting with altered mental status and called code stroke in ED. 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 Patient admitted for further evaluation and treatment of CVA. Plan: CVA -telemetry monitoring -CT head (01/03): acute or subacute infarct in L occcipital lobe measuring [id number]. Unchanged in appearance. Chronic microvascular changes with moderate atrophy. -f/u MRI, pending pacemaker compatibility per Dr. Judd, still pending -ECHO: normal LV systolic function, moderate , mild MR, trace TR -lipid panel: TG elevated at 185 -c/w statin -may start on Eliquis per Neuro recs (Dr. Judd) -PT/OT -Speech/Language Eval Atrial fibrillation with pacemaker - CHADSVASC score 5, will require anticoagulation - EKG: A.fib at 81 bpm - troponin negative - digoxin level 0.4 - digoxin held given low-normal HR - ECHO: normal LV systolic funciton. normal chamber size. moderate , mild MR, trace TR - Cardio recs (Dr. Cuellar) appreciated DM2 -HbA1c 9.0 -ISS low dose -home Metformin held -hypoglycemic protocol -accuchecks ACHS PPx, Diet, Disposition -DVT ppx: SCDs, eliquis -GI ppx: pepcid 20 mg PO BID -PT/OT -Disposition: awaiting Neuro clearance prior to d/c. F/U MRI, if pacemaker compatible <Gael Luo - Last Filed: 01/06/19 10:28> Objective - Vital Signs/Intake and Output Vital Signs (last 24 hours): Temp Pulse Resp BP Pulse Ox 97.7 F 78 20 128/77 98 01/06/19 07:30 01/06/19 07:30 01/06/19 07:30 01/06/19 07:30 01/06/19 07:30 Intake and Output: 01/06/19 01/06/19 06:59 18:59 Intake Total 480 Balance 480 - Medications Medications: Current Medications Apixaban (Eliquis) 2.5 mg PO BID [facility] Last Admin: 01/05/19 17:57 Dose: 2.5 mg Aspirin (Aspirin Chewable) 81 mg PO DAILY [facility] Last Admin: 01/05/19 09:45 Dose: 81 mg Dextrose (Dextrose 50% Inj) 0 ml IV STAT PRN; Protocol PRN Reason: Hypoglycemia Protocol Dextrose (Glutose 15) 0 gm PO ONCE PRN; Protocol PRN Reason: Hypoglycemia Protocol Famotidine (Pepcid) 20 mg PO DAILY [facility] Last Admin: 01/05/19 09:45 Dose: 20 mg Finasteride (Proscar) 5 mg PO DAILY [facility] Last Admin: 01/05/19 09:44 Dose: 5 mg Glucagon (Glucagen Diagnostic Kit) 0 mg IM STAT PRN; Protocol PRN Reason: Hypoglycemia Protocol Hydroxyzine HCl (Atarax) 25 mg PO DAILY PRN PRN Reason: Allergy symptoms Dextrose (Dextrose 5% In Water 1000 Ml) 1,000 mls @ 0 mls/hr IV .Q0M PRN; Protocol PRN Reason: Hypoglycemia Protocol Insulin Human Regular (Novolin R) [address] [facility]; Protocol Last Admin: 01/06/19 08:05 Dose: 1 units Rosuvastatin Calcium (Crestor) 20 mg PO [facility] Last Admin: 01/05/19 22:34 Dose: 20 mg - Labs Labs: 01/06/19 08:36 01/06/19 08:36 PT 12.7 SECONDS (9.7-12.2) H 01/02/19 09:37 INR 1.2 01/02/19 09:37 APTT 28 SECONDS (21-34) 01/02/19 09:37 Attending/Attestation - Attestation I have personally seen and examined this patient.: Yes I have fully participated in the care of the patient.: Yes I have reviewed all pertinent clinical information, including history, physical exam and plan: Yes Notes (Text): 01/06/19 10:18 Medical attending: Patient was seen and examined by me. Agree with the above note by the resident Patient was pleasant, following commands, however like yesterday there appears to be an element of confusion He is actively walking around. Yesterday I spoke with a family member name Iain who lives with the next of kin listed in chart. Iain explains the patent lives alone by himself and only has an occasional home visiting nurse The family's concern is ADLs and that he needs to be watched more than a few hours a day Family explained that often the patient goes to [facility] - however this time came to [facility] because [facility] has told him he may need to go to a detention - therefore that's why the patient came to [facility] this time The patient asked to go home today - and physical exam he did not have immediately noticeable neuro defecits. He is walking, moving all extremites We will have to see tomorrow Monday what potential homeservices he can have Gael Luo
[2019-01-05 07:09] LABS: ALB/GLOB RATIO 1.3 (1.0-2.1); ALBUMIN 3.8 g/dL (3.5-5.0); ALT/SGPT 20 U/L (21-72); AST/SGOT 20 U/L (17-59); BASO # 0.1 K/uL (0.0-0.2); BASO % 0.6 % (0.0-2.0); BLOOD UREA NITROGEN 19 mg/dL (9-20); CALCIUM 9.7 mg/dl (8.6-10.4); EOS # 0.2 K/uL (0.0-0.7); EOS % 1.4 % (0.0-4.0); GFR NON-AFRICAN AMERICAN > 60; HEMOGLOBIN 14.8 g/dL (12.0-18.0); LYMPH # 3.2 K/uL (1.0-4.3); LYMPH % 27.1 % (20.0-40.0); MEAN CELL VOLUME 91.6 fL (80.0-94.0); MEAN CORPUSCULAR HEMOGLOBIN 29.6 pg (27.0-31.0); MEAN CORPUSCULAR HGB CONC 32.3 g/dL (33.0-37.0); MEAN PLATELET VOLUME 11.1 fL (7.2-11.7); MONO % 8.9 % (0.0-10.0); NEUT # 7.2 K/uL (1.8-7.0); RBC 5.01 Mil/uL (4.40-5.90); RED CELL DISTRIBUTION WIDTH 13.7 % (11.5-14.5); WHITE BLOOD COUNT 11.7 K/uL (4.8-10.8)
[2019-01-05] MEDS: (Novolin R) Insulin Human Regular 100 units/ml vial SC SCH ×4 (07:53→22:19)
--- NOTE | 2019-01-05 20:30 | CP.PCM.PN ---
Subjective - Date & Time of Evaluation Date of Evaluation: 01/04/19 Time of Evaluation: 09:10 - Subjective Subjective: Patient seen and evaluated Denies chest pain and dyspnea Physical Exam - Constitutional Appears: Well, No Acute Distress - Head Exam Head Exam: ATRAUMATIC - Eye Exam Eye Exam: EOMI, Normal appearance, PERRL Pupil Exam: NORMAL ACCOMODATION - ENT Exam ENT Exam: Mucous Membranes Moist - Neck Exam Neck exam: Negative for: Lymphadenopathy, Tenderness, Thyromegaly - Respiratory Exam Respiratory Exam: Clear to Auscultation Bilateral, NORMAL BREATHING PATTERN. absent: Rales, Rhonchi, Wheezes - Cardiovascular Exam Cardiovascular Exam: Irregular Rhythm, +S1, +S2. absent: Gallop, JVD, Rubs - GI/Abdominal Exam GI & Abdominal Exam: Normal Bowel Sounds, Soft. absent: Distended, Firm, Tenderness - Extremities Exam Extremities exam: Positive for: pedal pulses present. Negative for: calf tenderness, pedal edema, tenderness - Neurological Exam Neurological exam: CN II-XII Intact, Reflexes Normal Additional comments: AAOx1, to person. muscle strength 4/5 in b/l upper and lower extremities no sensory deficits unable to follow commands to assess dysdiadochokinesia - Psychiatric Exam Psychiatric exam: Normal Affect, Normal Mood - Skin Skin Exam: Dry, Normal Color, Warm Assessment & Plan - Assessment and Plan (Free Text) Assessment: 88 year old male with PMH A.fib with pacemaker, DM2 presenting with altered mental status and called code stroke in ED. 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 Patient admitted for further evaluation and treatment of CVA. Plan: CVA - pt with altered mental status - CT head w/o contrast: acute vs. subacute infacrtion at L parietal occipital distribution with limited local mass effect. no midline shift, no hemorrhage. age-appropriate degenerative changes. - CTA head/neck: non-diagnostic - given ASA 325mg in ED, as per Neuro - given Plavix 300mg in ED, as per Neuro - not tpa candidate at this time due to uncertain time on onset of symptoms - NIHSS score of 3 - passed bedside swallow test - lipid panel: TG elevated at 185 - f/u UCx to r/o infectious cause of altered mental status - I/Os - tele monitoring - Crestor 20mg PO HS - ASA 325mg PO daily - Plavix 75mg PO daily - Neuro consulted, Dr. Judd - recs appreciated - PT/OT - Speech/Language Eval A.fib with pacemaker - EKG: Luis.fib at 81 bpm - troponin negative - digoxin level 0.4 - continue digoxin 125mcg PO daily DM2 - low dose sliding scale - home metformin held due to IV contrast, resume in 24 hrs - hypoglycemic protocol - accuchecks ACHS PPX: GI: Pepcid 20mg PO BID DVT: SCDs CCD Objective - Vital Signs/Intake and Output Vital Signs (last 24 hours): Temp Pulse Resp BP Pulse Ox 98.2 F 68 20 160/70 H 96 01/05/19 15:00 01/05/19 15:00 01/05/19 15:00 01/05/19 15:00 01/05/19 15:00 - Medications Medications: Current Medications Apixaban (Eliquis) 2.5 mg PO BID [facility] Last Admin: 01/05/19 17:57 Dose: 2.5 mg Aspirin (Aspirin Chewable) 81 mg PO DAILY [facility] Last Admin: 01/05/19 09:45 Dose: 81 mg Dextrose (Dextrose 50% Inj) 0 ml IV STAT PRN; Protocol PRN Reason: Hypoglycemia Protocol Dextrose (Glutose 15) 0 gm PO ONCE PRN; Protocol PRN Reason: Hypoglycemia Protocol Famotidine (Pepcid) 20 mg PO DAILY [facility] Last Admin: 01/05/19 09:45 Dose: 20 mg Finasteride (Proscar) 5 mg PO DAILY [facility] Last Admin: 01/05/19 09:44 Dose: 5 mg Glucagon (Glucagen Diagnostic Kit) 0 mg IM STAT PRN; Protocol PRN Reason: Hypoglycemia Protocol Hydroxyzine HCl (Atarax) 25 mg PO DAILY PRN PRN Reason: Allergy symptoms Dextrose (Dextrose 5% In Water 1000 Ml) 1,000 mls @ 0 mls/hr IV .Q0M PRN; Protocol PRN Reason: Hypoglycemia Protocol Insulin Human Regular (Novolin R) 0 unit SC [facility]; Protocol Last Admin: 01/05/19 17:29 Dose: 3 units Rosuvastatin Calcium (Crestor) 20 mg PO [facility] Last Admin: 01/04/19 22:29 Dose: 20 mg - Labs Labs: 01/05/19 06:50 01/05/19 06:50 PT 12.7 SECONDS (9.7-12.2) H 01/02/19 09:37 INR 1.2 01/02/19 09:37 APTT 28 SECONDS (21-34) 01/02/19 09:37
--- NOTE | 2019-01-05 20:32 | CP.PCM.PN ---
Subjective - Date & Time of Evaluation Date of Evaluation: 01/05/19 Time of Evaluation: 09:15 - Subjective Subjective: Patient seen and evaluated Denies chest pain and dyspnea Physical Exam - Constitutional Appears: Well, No Acute Distress - Head Exam Head Exam: ATRAUMATIC - Eye Exam Eye Exam: EOMI, Normal appearance, PERRL Pupil Exam: NORMAL ACCOMODATION - ENT Exam ENT Exam: Mucous Membranes Moist - Neck Exam Neck exam: Negative for: Lymphadenopathy, Tenderness, Thyromegaly - Respiratory Exam Respiratory Exam: Clear to Auscultation Bilateral, NORMAL BREATHING PATTERN. absent: Rales, Rhonchi, Wheezes - Cardiovascular Exam Cardiovascular Exam: Irregular Rhythm, +S1, +S2. absent: Gallop, JVD, Rubs - GI/Abdominal Exam GI & Abdominal Exam: Normal Bowel Sounds, Soft. absent: Distended, Firm, Tenderness - Extremities Exam Extremities exam: Positive for: pedal pulses present. Negative for: calf tenderness, pedal edema, tenderness - Neurological Exam Neurological exam: CN II-XII Intact, Reflexes Normal Additional comments: AAOx1, to person. muscle strength 4/5 in b/l upper and lower extremities no sensory deficits unable to follow commands to assess dysdiadochokinesia - Psychiatric Exam Psychiatric exam: Normal Affect, Normal Mood - Skin Skin Exam: Dry, Normal Color, Warm Assessment & Plan - Assessment and Plan (Free Text) Assessment: 88 year old male with PMH A.fib with pacemaker, DM2 presenting with altered mental status and called code stroke in ED. 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 Patient admitted for further evaluation and treatment of CVA. Plan: CVA - pt with altered mental status - CT head w/o contrast: acute vs. subacute infacrtion at L parietal occipital distribution with limited local mass effect. no midline shift, no hemorrhage. age-appropriate degenerative changes. - CTA head/neck: non-diagnostic - given ASA 325mg in ED, as per Neuro - given Plavix 300mg in ED, as per Neuro - not tpa candidate at this time due to uncertain time on onset of symptoms - NIHSS score of 3 - passed bedside swallow test - lipid panel: TG elevated at 185 - f/u UCx to r/o infectious cause of altered mental status - I/Os - tele monitoring - Crestor 20mg PO HS - ASA 325mg PO daily - Plavix 75mg PO daily - Neuro consulted, Dr. Judd - recs appreciated - PT/OT - Speech/Language Eval A.fib with pacemaker - EKG: Luis.fib at 81 bpm - troponin negative - digoxin level 0.4 - continue digoxin 125mcg PO daily DM2 - low dose sliding scale - home metformin held due to IV contrast, resume in 24 hrs - hypoglycemic protocol - accuchecks ACHS PPX: GI: Pepcid 20mg PO BID DVT: SCDs CCD Objective - Vital Signs/Intake and Output Vital Signs (last 24 hours): Temp Pulse Resp BP Pulse Ox 98.2 F 68 20 160/70 H 96 01/05/19 15:00 01/05/19 15:00 01/05/19 15:00 01/05/19 15:00 01/05/19 15:00 - Medications Medications: Current Medications Apixaban (Eliquis) 2.5 mg PO BID [facility] Last Admin: 01/05/19 17:57 Dose: 2.5 mg Aspirin (Aspirin Chewable) 81 mg PO DAILY [facility] Last Admin: 01/05/19 09:45 Dose: 81 mg Dextrose (Dextrose 50% Inj) 0 ml IV STAT PRN; Protocol PRN Reason: Hypoglycemia Protocol Dextrose (Glutose 15) 0 gm PO ONCE PRN; Protocol PRN Reason: Hypoglycemia Protocol Famotidine (Pepcid) 20 mg PO DAILY [facility] Last Admin: 01/05/19 09:45 Dose: 20 mg Finasteride (Proscar) 5 mg PO DAILY [facility] Last Admin: 01/05/19 09:44 Dose: 5 mg Glucagon (Glucagen Diagnostic Kit) 0 mg IM STAT PRN; Protocol PRN Reason: Hypoglycemia Protocol Hydroxyzine HCl (Atarax) 25 mg PO DAILY PRN PRN Reason: Allergy symptoms Dextrose (Dextrose 5% In Water 1000 Ml) 1,000 mls @ 0 mls/hr IV .Q0M PRN; Protocol PRN Reason: Hypoglycemia Protocol Insulin Human Regular (Novolin R) 0 unit SC [facility]; Protocol Last Admin: 01/05/19 17:29 Dose: 3 units Rosuvastatin Calcium (Crestor) 20 mg PO [facility] Last Admin: 01/04/19 22:29 Dose: 20 mg - Labs Labs: 01/05/19 06:50 01/05/19 06:50 PT 12.7 SECONDS (9.7-12.2) H 01/02/19 09:37 INR 1.2 01/02/19 09:37 APTT 28 SECONDS (21-34) 01/02/19 09:37
--- NOTE | 2019-01-06 01:19 | CP.PCM.PN ---
<Tera Brewster - Last Filed: 01/06/19 01:22> Subjective - Date & Time of Evaluation Date of Evaluation: 01/06/19 Time of Evaluation: 01:18 - Subjective Subjective: HOSPITALIST SERVICE Pt s/e at bedside. pt same mental status, unable to obtain full ROS, no events endorsed from nursing Objective - Vital Signs/Intake and Output Vital Signs (last 24 hours): Temp Pulse Resp BP Pulse Ox 98.2 F 68 20 160/70 H 96 01/05/19 15:00 01/05/19 15:00 01/05/19 15:00 01/05/19 15:00 01/05/19 15:00 - Medications Medications: Current Medications Apixaban (Eliquis) 2.5 mg PO BID [facility] Last Admin: 01/05/19 17:57 Dose: 2.5 mg Aspirin (Aspirin Chewable) 81 mg PO DAILY [facility] Last Admin: 01/05/19 09:45 Dose: 81 mg Dextrose (Dextrose 50% Inj) 0 ml IV STAT PRN; Protocol PRN Reason: Hypoglycemia Protocol Dextrose (Glutose 15) 0 gm PO ONCE PRN; Protocol PRN Reason: Hypoglycemia Protocol Famotidine (Pepcid) 20 mg PO DAILY [facility] Last Admin: 01/05/19 09:45 Dose: 20 mg Finasteride (Proscar) 5 mg PO DAILY [facility] Last Admin: 01/05/19 09:44 Dose: 5 mg Glucagon (Glucagen Diagnostic Kit) 0 mg IM STAT PRN; Protocol PRN Reason: Hypoglycemia Protocol Hydroxyzine HCl (Atarax) 25 mg PO DAILY PRN PRN Reason: Allergy symptoms Dextrose (Dextrose 5% In Water 1000 Ml) 1,000 mls @ 0 mls/hr IV .Q0M PRN; Protocol PRN Reason: Hypoglycemia Protocol Insulin Human Regular (Novolin R) 0 unit SC ACHS [facility]; Protocol Last Admin: 01/05/19 22:19 Dose: Not Given Rosuvastatin Calcium (Crestor) 20 mg PO HS [facility] Last Admin: 01/05/19 22:34 Dose: 20 mg - Labs Labs: 01/05/19 06:50 01/05/19 06:50 PT 12.7 SECONDS (9.7-12.2) H 01/02/19 09:37 INR 1.2 01/02/19 09:37 APTT 28 SECONDS (21-34) 01/02/19 09:37 Assessment and Plan - Assessment and Plan (Free Text) Assessment: 88 year old male with PMH A.fib with pacemaker, DM2 presenting with altered mental status and called code stroke in ED. 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 Patient admitted for further evaluation and treatment of CVA. Plan: CVA -telemetry monitoring -CT head (01/03): acute or subacute infarct in L occcipital lobe measuring 27b60mg. Unchanged in appearance. Chronic microvascular changes with moderate atrophy. -f/u MRI, pending pacemaker compatibility per Dr. Judd, still pending, likely monday -ECHO: normal LV systolic function, moderate , mild MR, trace TR -lipid panel: TG elevated at 185 -c/w statin -may start on Eliquis per Neuro recs (Dr. Judd) -PT/OT -Speech/Language Eval Leukocytosis afebrile normal HR f/u am WBCs Atrial fibrillation with pacemaker - CHADSVASC score 5, will require anticoagulation - EKG: A.fib at 81 bpm - troponin negative - digoxin level 0.4 - digoxin held given low-normal HR - ECHO: normal LV systolic funciton. normal chamber size. moderate , mild MR, trace TR - Cardio recs (Dr. Cuellar) appreciated DM2 -HbA1c 9.0 -ISS low dose -home Metformin held -hypoglycemic protocol -accuchecks ACHS PPx, Diet, Disposition -DVT ppx: SCDs, eliquis -GI ppx: pepcid 20 mg PO BID -PT/OT -Disposition: awaiting Neuro clearance prior to d/c. F/U MRI, if pacemaker compatible <Gael Luo - Last Filed: 01/06/19 10:30> Objective - Vital Signs/Intake and Output Vital Signs (last 24 hours): Temp Pulse Resp BP Pulse Ox 97.7 F 78 20 128/77 98 01/06/19 07:30 01/06/19 07:30 01/06/19 07:30 01/06/19 07:30 01/06/19 07:30 Intake and Output: 01/06/19 01/06/19 06:59 18:59 Intake Total 480 Balance 480 - Medications Medications: Current Medications Apixaban (Eliquis) 2.5 mg PO BID [facility] Last Admin: 01/05/19 17:57 Dose: 2.5 mg Aspirin (Aspirin Chewable) 81 mg PO DAILY [facility] Last Admin: 01/05/19 09:45 Dose: 81 mg Dextrose (Dextrose 50% Inj) 0 ml IV STAT PRN; Protocol PRN Reason: Hypoglycemia Protocol Dextrose (Glutose 15) 0 gm PO ONCE PRN; Protocol PRN Reason: Hypoglycemia Protocol Famotidine (Pepcid) 20 mg PO DAILY [facility] Last Admin: 01/05/19 09:45 Dose: 20 mg Finasteride (Proscar) 5 mg PO DAILY [facility] Last Admin: 01/05/19 09:44 Dose: 5 mg Glucagon (Glucagen Diagnostic Kit) 0 mg IM STAT PRN; Protocol PRN Reason: Hypoglycemia Protocol Hydroxyzine HCl (Atarax) 25 mg PO DAILY PRN PRN Reason: Allergy symptoms Dextrose (Dextrose 5% In Water 1000 Ml) 1,000 mls @ 0 mls/hr IV .Q0M PRN; Protocol PRN Reason: Hypoglycemia Protocol Insulin Human Regular (Novolin R) 0 unit SC ACHS [facility]; Protocol Last Admin: 01/06/19 08:05 Dose: 1 units Rosuvastatin Calcium (Crestor) 20 mg PO HS [facility] Last Admin: 01/05/19 22:34 Dose: 20 mg - Labs Labs: 01/06/19 08:36 01/06/19 08:36 PT 12.7 SECONDS (9.7-12.2) H 01/02/19 09:37 INR 1.2 01/02/19 09:37 APTT 28 SECONDS (21-34) 01/02/19 09:37 Attending/Attestation - Attestation I have personally seen and examined this patient.: Yes I have fully participated in the care of the patient.: Yes I have reviewed all pertinent clinical information, including history, physical exam and plan: Yes Notes (Text): 01/06/19 10:29 Note: The resident sent me the same note twice. We have been seeing the patient yesterday and today: Medical attending: Patient was seen and examined by me. Agree with the above note by the resident Patient was pleasant, following commands, however like yesterday there appears to be an element of confusion He is actively walking around. Yesterday I spoke with a family member name Iain who lives with the next of kin listed in chart. Iain explains the patent lives alone by himself and only has an occasional home visiting nurse The family's concern is ADLs and that he needs to be watched more than a few hours a day Family explained that often the patient goes to [facility] - however this time came to [facility] because [facility] has told him he may need to go to a care home - therefore that's why the patient came to [facility] this time The patient asked to go home today - and physical exam he did not have im mediately noticeable neuro defecits. He is walking, moving all extremites We will have to see tomorrow Monday what potential homeservices he can have Gael Luo
[2019-01-06] MEDS: (Novolin R) Insulin Human Regular 100 units/ml vial SC SCH ×4 (08:05→22:24)
[2019-01-06 08:10] VITALS: RESP 20
[2019-01-06 08:44] LABS: BASO # 0.1 K/uL (0.0-0.2); BASO % 0.9 % (0.0-2.0); EOS # 0.3 K/uL (0.0-0.7); EOS % 2.8 % (0.0-4.0); HEMOGLOBIN 16.1 g/dL (12.0-18.0); LYMPH # 3.3 K/uL (1.0-4.3); LYMPH % 27.5 % (20.0-40.0); MEAN CELL VOLUME 91.6 fL (80.0-94.0); MEAN CORPUSCULAR HEMOGLOBIN 30.2 pg (27.0-31.0); MEAN CORPUSCULAR HGB CONC 32.9 g/dL (33.0-37.0); MEAN PLATELET VOLUME 10.9 fL (7.2-11.7); MONO % 8.1 % (0.0-10.0); NEUT # 7.4 K/uL (1.8-7.0); NEUT % 60.7 % (50.0-75.0); RBC 5.32 Mil/uL (4.40-5.90); RED CELL DISTRIBUTION WIDTH 13.8 % (11.5-14.5); WHITE BLOOD COUNT 12.2 K/uL (4.8-10.8)
[2019-01-06 09:21] LABS: ALB/GLOB RATIO 1.4 (1.0-2.1); ALBUMIN 4.2 g/dL (3.5-5.0); ALT/SGPT 15 U/L (21-72); AST/SGOT 27 U/L (17-59); BLOOD UREA NITROGEN 18 mg/dL (9-20); CALCIUM 9.7 mg/dl (8.6-10.4); GFR NON-AFRICAN AMERICAN > 60
--- NOTE | 2019-01-06 20:45 | CP.PCM.PN ---
Subjective - Date & Time of Evaluation Date of Evaluation: 01/06/19 Time of Evaluation: 12:10 - Subjective Subjective: Patient seen and evaluated Denies chest pain and dyspnea Physical Exam - Constitutional Appears: Well, No Acute Distress - Head Exam Head Exam: ATRAUMATIC - Eye Exam Eye Exam: EOMI, Normal appearance, PERRL Pupil Exam: NORMAL ACCOMODATION - ENT Exam ENT Exam: Mucous Membranes Moist - Neck Exam Neck exam: Negative for: Lymphadenopathy, Tenderness, Thyromegaly - Respiratory Exam Respiratory Exam: Clear to Auscultation Bilateral, NORMAL BREATHING PATTERN. absent: Rales, Rhonchi, Wheezes - Cardiovascular Exam Cardiovascular Exam: Irregular Rhythm, +S1, +S2. absent: Gallop, JVD, Rubs - GI/Abdominal Exam GI & Abdominal Exam: Normal Bowel Sounds, Soft. absent: Distended, Firm, Tenderness - Extremities Exam Extremities exam: Positive for: pedal pulses present. Negative for: calf tenderness, pedal edema, tenderness - Neurological Exam Neurological exam: CN II-XII Intact, Reflexes Normal Additional comments: AAOx1, to person. muscle strength 4/5 in b/l upper and lower extremities no sensory deficits unable to follow commands to assess dysdiadochokinesia - Psychiatric Exam Psychiatric exam: Normal Affect, Normal Mood - Skin Skin Exam: Dry, Normal Color, Warm Assessment & Plan - Assessment and Plan (Free Text) Assessment: 88 year old male with PMH A.fib with pacemaker, DM2 presenting with altered mental status and called code stroke in ED. 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 Patient admitted for further evaluation and treatment of CVA. Plan: CVA - pt with altered mental status - CT head w/o contrast: acute vs. subacute infacrtion at L parietal occipital distribution with limited local mass effect. no midline shift, no hemorrhage. age-appropriate degenerative changes. - CTA head/neck: non-diagnostic - given ASA 325mg in ED, as per Neuro - given Plavix 300mg in ED, as per Neuro - not tpa candidate at this time due to uncertain time on onset of symptoms - NIHSS score of 3 - passed bedside swallow test - lipid panel: TG elevated at 185 - f/u UCx to r/o infectious cause of altered mental status - I/Os - tele monitoring - Crestor 20mg PO HS - ASA 325mg PO daily - Plavix 75mg PO daily - Neuro consulted, Dr. Judd - recs appreciated - PT/OT - Speech/Language Eval A.fib with pacemaker - EKG: Luis.fib at 81 bpm - troponin negative - digoxin level 0.4 - continue digoxin 125mcg PO daily DM2 - low dose sliding scale - home metformin held due to IV contrast, resume in 24 hrs - hypoglycemic protocol - accuchecks ACHS PPX: GI: Pepcid 20mg PO BID DVT: SCDs CCD Objective - Vital Signs/Intake and Output Vital Signs (last 24 hours): Temp Pulse Resp BP Pulse Ox 97.9 F 78 20 111/63 96 01/06/19 15:00 01/06/19 20:06 01/06/19 15:00 01/06/19 15:00 01/06/19 15:00 - Medications Medications: Current Medications Apixaban (Eliquis) 2.5 mg PO BID [facility] Last Admin: 01/06/19 17:42 Dose: 2.5 mg Aspirin (Aspirin Chewable) 81 mg PO DAILY [facility] Last Admin: 01/06/19 10:45 Dose: 81 mg Dextrose (Dextrose 50% Inj) 0 ml IV STAT PRN; Protocol PRN Reason: Hypoglycemia Protocol Dextrose (Glutose 15) 0 gm PO ONCE PRN; Protocol PRN Reason: Hypoglycemia Protocol Famotidine (Pepcid) 20 mg PO DAILY [facility] Last Admin: 01/06/19 10:48 Dose: 20 mg Finasteride (Proscar) 5 mg PO DAILY [facility] Last Admin: 01/06/19 10:44 Dose: 5 mg Glucagon (Glucagen Diagnostic Kit) 0 mg IM STAT PRN; Protocol PRN Reason: Hypoglycemia Protocol Hydroxyzine HCl (Atarax) 25 mg PO DAILY PRN PRN Reason: Allergy symptoms Dextrose (Dextrose 5% In Water 1000 Ml) 1,000 mls @ 0 mls/hr IV .Q0M PRN; Protocol PRN Reason: Hypoglycemia Protocol Insulin Human Regular (Novolin R) 0 unit SC [facility]; Protocol Last Admin: 01/06/19 17:30 Dose: 2 units Rosuvastatin Calcium (Crestor) 20 mg PO [facility] Last Admin: 01/05/19 22:34 Dose: 20 mg - Labs Labs: 01/06/19 08:36 01/06/19 08:36 PT 12.7 SECONDS (9.7-12.2) H 01/02/19 09:37 INR 1.2 01/02/19 09:37 APTT 28 SECONDS (21-34) 01/02/19 09:37
--- NOTE | 2019-01-07 07:26 | CP.PCM.DIS ---
<Davi Villaseñor - Last Filed: 01/07/19 14:49> Provider - Provider Date of Admission: 01/02/19 11:04 Attending physician: Phil Carvalho MD Consults: 01/02/19 09:29 Stroke Team Consult Stat Comment: Consulting Provider: Neurohospitalist Consulting Physician: NEUROHOSP Neurohospitalist for Consult: Rafat Judd Neurohospitalist for Consult: Hall,Gautami Reason for Consult: code stroke 01/02/19 10:51 Physician Consult Stat Comment: atrial fibrillation Consulting Provider: Trung Cuellar Consulting Physician: Trung Cuellar Reason for Consult: cardiology Physician Consult Stat Comment: code stroke Consulting Provider: Rafat Judd Consulting Physician: Rafat Judd Reason for Consult: acute/aubacute cva Additional Comments: spoken with 01/03/19 20:29 Cardiology Consult Routine Comment: Consulting Provider: Meseret Callahan Consulting Physician: Meseret Callahan Reason for Consult: Hr 43 to 44 in and out 01/04/19 08:00 Case Management Referral Routine Comment: receives home health agency [facility]; family reqeust Physician Instructions: Reason For Exam: lives alone at home Reason for Referral: Discharge Planning 01/04/19 08:03 Social Work Referral Routine Comment: receives homemaker service from [facility] Physician Instructions: Reason For Exam: lives alone Time Spent in preparation of Discharge (in minutes): 40 Hospital Course - Lab Results Lab Results: Micro Results 01/02/19 11:10 Urine Random Urine Culture - Final Gram Positive Cocci Most Recent Lab Values WBC 12.2 K/uL (4.8-10.8) H 01/06/19 08:36 RBC 5.32 Mil/uL (4.40-5.90) 01/06/19 08:36 Hgb 16.1 g/dL (12.0-18.0) 01/06/19 08:36 Hct 48.8 % (35.0-51.0) 01/06/19 08:36 MCV 91.6 fL (80.0-94.0) 01/06/19 08:36 MCH 30.2 pg (27.0-31.0) 01/06/19 08:36 MCHC 32.9 g/dL (33.0-37.0) L 01/06/19 08:36 RDW 13.8 % (11.5-14.5) 01/06/19 08:36 Plt Count 416 K/uL (130-400) H 01/06/19 08:36 MPV 10.9 fL (7.2-11.7) 01/06/19 08:36 Neut % (Auto) 60.7 % (50.0-75.0) 01/06/19 08:36 Lymph % (Auto) 27.5 % (20.0-40.0) 01/06/19 08:36 [place] % (Auto) 8.1 % (0.0-10.0) 01/06/19 08:36 Eos % (Auto) 2.8 % (0.0-4.0) 01/06/19 08:36 Baso % (Auto) 0.9 % (0.0-2.0) 01/06/19 08:36 Neut # (Auto) 7.4 K/uL (1.8-7.0) H 01/06/19 08:36 Lymph # (Auto) 3.3 K/uL (1.0-4.3) 01/06/19 08:36 [place] # (Auto) 1.0 K/uL (0.0-0.8) H 01/06/19 08:36 Eos # (Auto) 0.3 K/uL (0.0-0.7) 01/06/19 08:36 Baso # (Auto) 0.1 K/uL (0.0-0.2) 01/06/19 08:36 PT 12.7 SECONDS (9.7-12.2) H 01/02/19 09:37 INR 1.2 01/02/19 09:37 APTT 28 SECONDS (21-34) 01/02/19 09:37 Sodium 139 mmol/L (132-148) 01/06/19 08:36 Potassium 4.4 mmol/L (3.6-5.2) 01/06/19 08:36 Chloride 103 mmol/L (98-107) 01/06/19 08:36 Carbon Dioxide 26 mmol/L (22-30) 01/06/19 08:36 Anion Gap 14 (10-20) 01/06/19 08:36 BUN 18 mg/dL (9-20) 01/06/19 08:36 Creatinine 0.9 mg/dL (0.8-1.5) 01/06/19 08:36 Est GFR ( Amer) > 60 01/06/19 08:36 Est GFR (Non-Af Amer) > 60 01/06/19 08:36 POC Glucose (mg/dL) 191 mg/dL (65-110) H 01/07/19 06:30 Random Glucose 196 mg/dL (75-110) H 01/06/19 08:36 Hemoglobin A1c 9.0 % (4.2-6.5) H 01/03/19 11:44 Calcium 9.7 mg/dl (8.6-10.4) 01/06/19 08:36 Total Bilirubin 0.5 mg/dL (0.2-1.3) 01/06/19 08:36 AST 27 U/L (17-59) 01/06/19 08:36 ALT 15 U/L (21-72) L D 01/06/19 08:36 Alkaline Phosphatase 67 U/L (38-126) 01/06/19 08:36 Troponin I < 0.0120 ng/mL (0.00-0.120) 01/02/19 09:37 Total Protein 7.2 g/dL (6.3-8.3) 01/06/19 08:36 Albumin 4.2 g/dL (3.5-5.0) 01/06/19 08:36 Globulin 3.0 gm/dL (2.2-3.9) 01/06/19 08:36 Albumin/Globulin Ratio 1.4 (1.0-2.1) 01/06/19 08:36 Triglycerides 185 mg/dL (0-149) H 01/02/19 09:37 Cholesterol 169 mg/dL (0-199) 01/02/19 09:37 LDL Cholesterol Direct 116 mg/dL (0-129) 01/02/19 09:37 HDL Cholesterol 51 mg/dL (30-70) 01/02/19 09:37 Vitamin B12 374 pg/mL (239-931) 01/03/19 11:44 25-OH Vitamin D Total 36.6 NG/ML (30.0-100.0) 01/03/19 11:44 Folate 13.2 ng/mL 01/03/19 11:44 TSH 3rd Generation 4.13 mIU/L (0.46-4.68) 01/03/19 11:44 Urine Color Yellow (YELLOW) 01/02/19 11:10 Urine Clarity Clear (Clear) 01/02/19 11:10 Urine pH 6.0 (5.0-8.0) 01/02/19 11:10 Ur Specific Clifford 1.010 (1.003-1.030) 01/02/19 11:10 Urine Protein Negative mg/dL (NEGATIVE) 01/02/19 11:10 Urine Glucose (UA) 1+ mg/dL (Normal) H 01/02/19 11:10 Urine Ketones Trace mg/dL (NEGATIVE) 01/02/19 11:10 Urine Blood Negative (NEGATIVE) 01/02/19 11:10 Urine Nitrate Negative (NEGATIVE) 01/02/19 11:10 Urine Bilirubin Negative (NEGATIVE) 01/02/19 11:10 Urine Urobilinogen Normal mg/dL (0.2-1.0) 01/02/19 11:10 Ur Leukocyte Esterase Neg Ami/uL (Negative) 01/02/19 11:10 Urine WBC (Auto) < 1 /hpf (0-5) 01/02/19 11:10 Urine RBC (Auto) 2 /hpf (0-3) 01/02/19 11:10 Digoxin < 0.4 ng/mL (0.8-2.0) L 01/02/19 10:37 Blood Type O POSITIVE 01/02/19 09:37 Antibody Screen Negative 01/02/19 09:37 - Hospital Course Hospital Course: HPI: Patient is an 88 year old Male with past medical history of type II diabetes and atrial fibrillation with pacemaker, brought in by ambulance to ED for altered mental status. Patient complains of throat pain and headache at this time. Most history is obtained from friend at bedside and daughter in law Luna over the phone. As per Luna, patient complained of headache and generally not feeling well for the past 3 days. She requested the friend to go visit him last night. At that time, patient appeared "normal" to friend, who did not notice any difficulty talking, walking, or using limbs. He says patient at baseline has memory issues, sometimes confusing stories or repeating things. This morning, friend returned to visit patient around 8am, at which time he was slightly confused and with some unintelligible speech, complaining of headache and throat pain. Patient was still able to walk at this time, and friend did not notice facial droop. Patient and friend both deny any falls or trauma. Patient currently denies any trouble swallowing, blurry vision, numbness, tingling, or dizziness. During course of hospital admission: Troponin was negative. Echocardiogram renealed normal left ventricular systolic function with normal chamber size, moderate aortic stenosis and mild mitral regurgitation. Cardiology (Dr. Cuellar) was consulted and recommendations were appreciated, with conservative medical management. Patient was placed on telemetry monitoring. CT head (01/03) revealed acute/subacute infarct in the left occcipital lobe measuring [id number]. Unchanged in appearance. Chronic microvascular changes with moderate atrophy were also evident. Neurology (Dr. Judd) was consulted. MRI was not obtained due to pacemaker incompatibility. Patient was started on Eliquis for anticoagulation and evaluated by physical therapy. Patient is medically stable for discharge to home per Dr. Luo. Home services are already set up. Patient is instructed to continue all home medications as currently prescribed. Aspirin and Eliquis have been added to his list of medications, to be taken as prescribed. Scripts have been provided. Please follow up with your primary care provider within 1 week of discharge for continued care and management of all chronic issues. Please follow up with Neurology (Dr. Judd) within 3-5 days of discharge for further care and monitoring. Please also follow up with your voucher examiner (Dr. Grier) within 1 week of discharge for further monitoring and care. If symptoms worsen or persist, please return to the ED immediately. The following is a summary of hospital course. For full detail, please refer to EMR. - Date & Time of H&P Date of H&P: 01/07/19 Time of H&P: 14:50 Discharge Exam - Head Exam Head Exam: ATRAUMATIC, NORMAL INSPECTION, NORMOCEPHALIC - Eye Exam Eye Exam: EOMI, Normal appearance Pupil Exam: NORMAL ACCOMODATION - ENT Exam ENT Exam: Mucous Membranes Moist, Normal Exam - Neck Exam Neck exam: Full Rom, Normal Inspection - Respiratory Exam Respiratory Exam: Clear to PA & Lateral, NORMAL BREATHING PATTERN, UNREMARKABLE. absent: Accessory Muscle Use, Rales, Rhonchi, Wheezes, Respiratory Distress, Stridor - Cardiovascular Exam Cardiovascular Exam: REGULAR RHYTHM, +S1, +S2 - GI/Abdominal Exam GI & Abdominal Exam: Normal Bowel Sounds, Soft, Unremarkable. absent: Distended, Firm, Guarding, Rebound, Rigid, Tenderness - Extremities Exam Extremities exam: normal capillary refill, normal inspection, pedal pulses present - Back Exam Back exam: NORMAL INSPECTION - Neurological Exam Neurological exam: Alert, Normal Gait - Psychiatric Exam Psychiatric exam: Normal Affect, Normal Mood - Skin Skin Exam: Dry, Intact, Normal Color, Warm Additional comments: Alert and oriented to person and place. Mildly demented. Discharge Plan - Discharge Medications Prescriptions: Apixaban [Eliquis] 2.5 mg PO BID #60 tablet RX: Aspirin [Aspirin Chewable] 81 mg PO DAILY #30 chew RX: Metformin HCl [Glucophage] 500 mg PO DAILY #30 tablet - Follow Up Plan Condition: GOOD Disposition: HOME/ ROUTINE Instructions: Diabetes Exchange Diet, Atrial Fibrillation (DC), Stroke (DC), Diabetes Diet , Apixaban, Aspirin, Metformin Additional Instructions: Patient is medically stable for discharge to home per Dr. Luo. Home services are already set up. Patient is instructed to continue all home medications as currently prescribed. Aspirin and Eliquis have been added to his list of medications, to be taken as prescribed. Scripts have been provided. Please follow up with your primary care provider within 1 week of discharge for continued care and management of all chronic issues. Please follow up with Neurology (Dr. Judd) within 3-5 days of discharge for further care and monitoring. Please also follow up with your voucher examiner (Dr. Grier) within 1 week of discharge for further monitoring and care. If symptoms worsen or persist, please return to the ED immediately. El paciente est mdicamente estable para el [facility] hospital[facility] segn el Dr. Luo. Los servicios a domicilio ya estn configurados. Se instruye al paciente para que contine con todos los medicamentos en el hogar segn lo prescrito actualmente. La aspirina y el eliquis se borrero agregado a camacho lista de medicamentos, para ser tomados segn lo prescrito. Se borrero proporcionado scripts. Por favor, katy un seguimiento con camacho proveedor de atencin primaria dentro de la primera semana despus del marcel[place] para recibir atencin continua y administrar todos los problemas crnicos. Por favor, katy un seguimiento con Neurology (Dr. Judd) dentro de los 3-5 ruby posteriores al mar[place] para recibir ms atencin y monitoreo. Tambin katy un seguimiento con camacho cardilogo (Dr. Grier) dentro de la primera semana del [place] hospital[facility] para un seguimiento y atencin adicionales. Si los sntomas empeoran o persisten, regrese inmediatamente al servicio de urgencias. Referrals: Bindu Martinez MD [Staff Provider] - Rashaun Grier MD [Staff Provider] - Rafat Judd MD [Staff Provider] - <Gael Luo H - Last Filed: 01/07/19 18:19> Provider - Provider Date of Admission: 01/02/19 11:04 Attending physician: Phil Carvalho MD Consults: 01/02/19 09:29 Stroke Team Consult Stat Comment: Consulting Provider: Neurohospitalist Consulting Physician: NEUROHOSP Neurohospitalist for Consult: Rafat Judd Neurohospitalist for Consult: Kenn Hall Reason for Consult: code stroke 01/02/19 10:51 Physician Consult Stat Comment: atrial fibrillation Consulting Provider: Trung Cuellar Consulting Physician: Trung Cuellar Reason for Consult: cardiology Physician Consult Stat Comment: code stroke Consulting Provider: Rafat Judd Consulting Physician: Rafat Judd Reason for Consult: acute/aubacute cva Additional Comments: spoken with 01/03/19 20:29 Cardiology Consult Routine Comment: Consulting Provider: Meseret Callahan Consulting Physician: Meseret Callahan Reason for Consult: Hr 43 to 44 in and out 01/04/19 08:00 Case Management Referral Routine Comment: receives home health agency [facility]; family reqeust Physician Instructions: Reason For Exam: lives alone at home Reason for Referral: Discharge Planning 01/04/19 08:03 Social Work Referral Routine Comment: receives homemaker service from [facility] Physician Instructions: Reason For Exam: lives alone Hospital Course - Lab Results Lab Results: Micro Results 01/02/19 11:10 Urine Random Urine Culture - Final Gram Positive Cocci Most Recent Lab Values WBC 11.5 K/uL (4.8-10.8) H 01/07/19 07:42 RBC 5.36 Mil/uL (4.40-5.90) 01/07/19 07:42 Hgb 16.1 g/dL (12.0-18.0) 01/07/19 07:42 Hct 49.0 % (35.0-51.0) 01/07/19 07:42 MCV 91.4 fL (80.0-94.0) 01/07/19 07:42 MCH 29.9 pg (27.0-31.0) 01/07/19 07:42 MCHC 32.8 g/dL (33.0-37.0) L 01/07/19 07:42 RDW 13.9 % (11.5-14.5) 01/07/19 07:42 Plt Count 374 K/uL (130-400) 01/07/19 07:42 MPV 11.5 fL (7.2-11.7) 01/07/19 07:42 Neut % (Auto) 55.6 % (50.0-75.0) 01/07/19 07:42 Lymph % (Auto) 30.2 % (20.0-40.0) 01/07/19 07:42 [place] % (Auto) 8.7 % (0.0-10.0) 01/07/19 07:42 Eos % (Auto) 4.3 % (0.0-4.0) H 01/07/19 07:42 Baso % (Auto) 1.2 % (0.0-2.0) 01/07/19 07:42 Neut # (Auto) 6.4 K/uL (1.8-7.0) 01/07/19 07:42 Lymph # (Auto) 3.5 K/uL (1.0-4.3) 01/07/19 07:42 [place] # (Auto) 1.0 K/uL (0.0-0.8) H 01/07/19 07:42 Eos # (Auto) 0.5 K/uL (0.0-0.7) 01/07/19 07:42 Baso # (Auto) 0.1 K/uL (0.0-0.2) 01/07/19 07:42 PT 12.7 SECONDS (9.7-12.2) H 01/02/19 09:37 INR 1.2 01/02/19 09:37 APTT 28 SECONDS (21-34) 01/02/19 09:37 Sodium 136 mmol/L (132-148) 01/07/19 07:42 Potassium 4.2 mmol/L (3.6-5.2) 01/07/19 07:42 Chloride 102 mmol/L (98-107) 01/07/19 07:42 Carbon Dioxide 26 mmol/L (22-30) 01/07/19 07:42 Anion Gap 12 (10-20) 01/07/19 07:42 BUN 21 mg/dL (9-20) H 01/07/19 07:42 Creatinine 0.9 mg/dL (0.8-1.5) 01/07/19 07:42 Est GFR ( Amer) > 60 01/07/19 07:42 Est GFR (Non-Af Amer) > 60 01/07/19 07:42 POC Glucose (mg/dL) 191 mg/dL (65-110) H 01/07/19 06:30 Random Glucose 202 mg/dL (75-110) H 01/07/19 07:42 Hemoglobin A1c 9.0 % (4.2-6.5) H 01/03/19 11:44 Calcium 9.6 mg/dl (8.6-10.4) 01/07/19 07:42 Total Bilirubin 0.6 mg/dL (0.2-1.3) 01/07/19 07:42 AST 28 U/L (17-59) 01/07/19 07:42 ALT 12 U/L (21-72) L 01/07/19 07:42 Alkaline Phosphatase 65 U/L (38-126) 01/07/19 07:42 Troponin I < 0.0120 ng/mL (0.00-0.120) 01/02/19 09:37 Total Protein 6.6 g/dL (6.3-8.3) 01/07/19 07:42 Albumin 3.8 g/dL (3.5-5.0) 01/07/19 07:42 Globulin 2.8 gm/dL (2.2-3.9) 01/07/19 07:42 Albumin/Globulin Ratio 1.4 (1.0-2.1) 01/07/19 07:42 Triglycerides 185 mg/dL (0-149) H 01/02/19 09:37 Cholesterol 169 mg/dL (0-199) 01/02/19 09:37 LDL Cholesterol Direct 116 mg/dL (0-129) 01/02/19 09:37 HDL Cholesterol 51 mg/dL (30-70) 01/02/19 09:37 Vitamin B12 374 pg/mL (239-931) 01/03/19 11:44 25-OH Vitamin D Total 36.6 NG/ML (30.0-100.0) 01/03/19 11:44 Folate 13.2 ng/mL 01/03/19 11:44 TSH 3rd Generation 4.13 mIU/L (0.46-4.68) 01/03/19 11:44 Urine Color Yellow (YELLOW) 01/02/19 11:10 Urine Clarity Clear (Clear) 01/02/19 11:10 Urine pH 6.0 (5.0-8.0) 01/02/19 11:10 Ur Specific Clifford 1.010 (1.003-1.030) 01/02/19 11:10 Urine Protein Negative mg/dL (NEGATIVE) 01/02/19 11:10 Urine Glucose (UA) 1+ mg/dL (Normal) H 01/02/19 11:10 Urine Ketones Trace mg/dL (NEGATIVE) 01/02/19 11:10 Urine Blood Negative (NEGATIVE) 01/02/19 11:10 Urine Nitrate Negative (NEGATIVE) 01/02/19 11:10 Urine Bilirubin Negative (NEGATIVE) 01/02/19 11:10 Urine Urobilinogen Normal mg/dL (0.2-1.0) 01/02/19 11:10 Ur Leukocyte Esterase Neg Ami/uL (Negative) 01/02/19 11:10 Urine WBC (Auto) < 1 /hpf (0-5) 01/02/19 11:10 Urine RBC (Auto) 2 /hpf (0-3) 01/02/19 11:10 Digoxin < 0.4 ng/mL (0.8-2.0) L 01/02/19 10:37 Blood Type O POSITIVE 01/02/19 09:37 Antibody Screen Negative 01/02/19 09:37 Attending/Attestation - Attestation I have personally seen and examined this patient.: Yes I have fully participated in the care of the patient.: Yes I have reviewed all pertinent clinical information, including history, physical exam and plan: Yes Notes (Text): Medical attending: Patient was seen and examined by me. Agree with the above not e by the resident The patient was not in any acute distress He was really pressing us repeatedly to discharge him He was walking in the floors without assistance As mentioned previously I spoke with the patient's family member over the phone on the weekend and they were wondering if the patient had anyway to have a 24hr a day strategic sourcing specialist. Per discussion with the case aide this morning this would not be possible The patient already has a person who stays at the home about 2 to 3 hrs a day He does not want to go to a shelter At this time we will discharge the patient to home. If in the future he returns, may have to strongly push for him to be in a shelter placement Gael Luo
[2019-01-07 07:57] LABS: BASO # 0.1 K/uL (0.0-0.2); BASO % 1.2 % (0.0-2.0); EOS # 0.5 K/uL (0.0-0.7); EOS % 4.3 % (0.0-4.0); HEMOGLOBIN 16.1 g/dL (12.0-18.0); LYMPH # 3.5 K/uL (1.0-4.3); LYMPH % 30.2 % (20.0-40.0); MEAN CELL VOLUME 91.4 fL (80.0-94.0); MEAN CORPUSCULAR HEMOGLOBIN 29.9 pg (27.0-31.0); MEAN CORPUSCULAR HGB CONC 32.8 g/dL (33.0-37.0); MEAN PLATELET VOLUME 11.5 fL (7.2-11.7); MONO % 8.7 % (0.0-10.0); NEUT # 6.4 K/uL (1.8-7.0); NEUT % 55.6 % (50.0-75.0); NRBC % 0.1 % (0.0-2.0); RBC 5.36 Mil/uL (4.40-5.90); RED CELL DISTRIBUTION WIDTH 13.9 % (11.5-14.5); WHITE BLOOD COUNT 11.5 K/uL (4.8-10.8)
[2019-01-07 08:04] VITALS: BP 119/76; TEMP 98.2; O2SAT 96
[2019-01-07 08:07] LABS: ALB/GLOB RATIO 1.4 (1.0-2.1); ALBUMIN 3.8 g/dL (3.5-5.0); ALT/SGPT 12 U/L (21-72); AST/SGOT 28 U/L (17-59); BLOOD UREA NITROGEN 21 mg/dL (9-20); CALCIUM 9.6 mg/dl (8.6-10.4); GFR NON-AFRICAN AMERICAN > 60
[2019-01-07] MEDS: (Novolin R) Insulin Human Regular 100 units/ml vial SC SCH ×2 (08:11→11:56)
[2019-01-07 09:10] VITALS: PULSE 113
--- NOTE | 2019-01-07 10:28 | VASCLAB ---
Date of service: 01/04/2019 PROCEDURE: Carotid Duplex Exam. HISTORY: s/p CVA COMPARISON: None available. TECHNIQUE: Grayscale and duplex Doppler evaluation of the cervical carotid and vertebral arteries were performed. The common carotid, carotid bifurcations and cervical Internal Carotid Artery (ICA) and proximal External Carotid Artery (ECA) were evaluated. The vertebral arteries were evaluated for gross patency and flow direction. Report prepared by Segun Mendez, BS, RVT FINDINGS: RIGHT CAROTID ARTERIES: 1. Common Carotid Artery: No significant focal plaque formation of the right common carotid artery. Maximum Peak Systolic velocity: 77 cm/sec: End-diastolic velocity 11 cm/sec. 2. Carotid Bifurcation: plaque formation. Maximum Peak Systolic velocity: 64 cm/sec: End-diastolic velocity 7 cm/sec. 3. Internal Carotid Artery: Plaque description: 3.1. Proximal Segment: Peak systolic velocity 84 cm/sec: End-diastolic velocity 15 cm/sec - % stenosis 0-15% 3.2. Middle Segment: Peak systolic velocity 64 cm/sec: End-diastolic velocity 14 cm/sec - % stenosis 0-15% 3.3. Distal Segment: Peak systolic velocity 69 cm/sec: End-diastolic velocity 12 cm/sec - % stenosis 0-15% 4. External Carotid Artery: No significant focal plaque formation. Peak systolic velocity 123 cm/sec 5. ICA/CCA Ratio: 1.1 LEFT CAROTID ARTERIES: 1. Common Carotid Artery: No significant focal plaque formation of the left common carotid artery. Maximum Peak Systolic velocity: 107 cm/sec: End-diastolic velocity 14 cm/sec. 2. Carotid Bifurcation: plaque formation. Maximum Peak Systolic velocity: 108 cm/sec: End-diastolic velocity 14 cm/sec. 3. Internal Carotid Artery: Plaque description: 3.1. Proximal Segment: Peak systolic velocity 72 cm/sec: End-diastolic velocity 19 cm/sec - % stenosis 0-15% 3.2. Middle Segment: Peak systolic velocity 99 cm/sec: End-diastolic velocity 25 cm/sec - % stenosis 0-15% 3.3. Distal Segment: Peak systolic velocity 56 cm/sec: End-diastolic velocity 16 cm/sec - % stenosis 0-15% 4. External Carotid Artery: No significant focal plaque formation. Peak systolic velocity 108 cm/sec 5. ICA/CCA Ratio: 1.0 VERTEBRAL ARTERIES: 1. Right Vertebral Artery: The right vertebral artery flow direction is antegrade. 2. Left Vertebral Artery: The left vertebral artery flow direction is antegrade. OTHER FINDINGS: 1. Right Brachial Blood pressure: 140 mmHg. 2. Left Brachial Blood pressure: 144 mmHg. 3. No atherosclerotic calcification present IMPRESSION: RIGHT: Duplex scan does not suggest hemodynamically significant stenosis of the right extracranial carotid arteries. LEFT: Duplex scan does not suggest hemodynamically significant stenosis of the left extracranial carotid arteries.
--- NOTE | 2019-01-11 11:15 | PQF ---
PROVIDER RESPONSE TEXT: Left posterior cebellar artery ischemic stroke. REVIEWER QUERY TEXT: Stroke Specificity Stroke is documented in the Medical Record. Please specify the type, the vessel involved and location Such as: Vessel: -- Cerebral artery (please specify as anterior, cerebellar, middle, posterior) -- Precerebral artery (basilar, carotid, vertebra) -- Other, please specify Type: -- Cerebral venous thrombosis -- Embolism -- Hemorrhage (non-traumatic) -- Occlusion or stenosis -- Other, please specify Location of non-traumatic hemorrhage such as: -- Intracerebral -- Intracranial -- Subarachnoid -- Subdural -- Other, please specify The patient's Clinical Indicators include: 88 Year old male with PMX of A fib, pacemaker, DM presented with Altered mental status,. CT head - W/o contrast : acute vs Subacute infarction at L parietal occipital distribution with limited local mass effect, no midline shift, no hemorrhage. Age appropriate degenerative chamges. Please clarify if CVA was ruled in or ruled out. Query created by: Darcie Flores on 01/10/2019 2:08 PM Electronically signed by: Phil Carvalho MD 01/11/2019 11:12 AM
== END 2019-01-07 14:48 | disposition home or self-care (01) | DRG 66 ==
LOC: C.ER 09:26 → C.6T 11:04
PROVIDERS: ADMIT Internal Medicine; ATTEND Internal Medicine
DX: I63.89 Other cerebral infarction (principal); I48.91 Unspecified atrial fibrillation; R47.01 Aphasia; Z95.0 Presence of cardiac pacemaker; E11.9 Type 2 diabetes mellitus without complications

== ENCOUNTER 2019-04-08 12:16 | Inpatient (IN) | payer OTHER | END 2019-04-12 13:38 | disposition home or self-care (01) | LOC: C.6T 04-10 00:05 → C.ER 12:16 → C.9E 14:47 → C.6T 20:20 ==